=== PATIENT | female | born 1950 | race Caucasian/White ===

== ENCOUNTER 2016-09-12 07:50 | Day surgery (SDC) | payer MEDICARE, MEDICAID ==
[2016-09-12] MEDS ORDERED: Sodium Chloride 0.9% 1,000 ML IV SCH (08:00)
[2016-09-12] MEDS ORDERED: Sodium Chloride 0.9% 5 ML Syringe FLUSH PRN (08:00)
[2016-09-12 08:37] LABS: CHLORIDE,CL 100 mmol/L (98-115); SODIUM,NA 136 mmol/L (136-145)
[2016-09-12] MEDS ORDERED: fentaNYL 100 MCG/2 ML SDV ONE ×2 (10:07→10:15)
[2016-09-12] MEDS ORDERED: ceFAZolin 1 GM Vial ONE ×2 (10:07→10:15)
[2016-09-12] MEDS ORDERED: Propofol 200 MG/20 ML SDV ONE ×2 (10:07→10:15)
[2016-09-12] MEDS ORDERED: Midazolam 1 MG/ML 2 ML SDV ONE ×2 (10:07→10:15)
[2016-09-12] MEDS ORDERED: Ketorolac 30 MG/ML SDV ONE ×2 (10:07→10:15)
[2016-09-12] MEDS ORDERED: Lactated Ringers 1,000 ML ONE (10:08)
[2016-09-12] MEDS ORDERED: Neostigmine Methylsulfate 10 MG/10 ML MDV ONE (10:15)
[2016-09-12] MEDS ORDERED: Glycopyrrolate 0.2 MG/ML 5 ML MDV ONE (10:15)
[2016-09-12] MEDS ORDERED: Succinylcholine 200 MG/10 ML MDV ONE (10:15)
[2016-09-12] MEDS ORDERED: Ondansetron 4 MG/2 ML SDV ONE (10:15)
[2016-09-12] MEDS ORDERED: Rocuronium 50 MG/5 ML Vial ONE (10:15)
[2016-09-12] MEDS ORDERED: Bupivacaine 0.5%/EPINEPHrine 1:200,000 30 ML SDV INJECT ONE (10:50)
[2016-09-12] MEDS ORDERED: Bupivacaine 0.5%/EPINEPHrine 1:200,000 30 ML SDV ONE (10:55)
--- NOTE | 2016-09-12 11:06 | PCM.OPNOTE ---
- General Post-Op/Procedure Note Date of Surgery/Procedure: 09/12/16 Operative Procedure(s): Hysteroscopy and D&C. Removal of skin lesion over the suprapubic area, left side. Primary Surgeon: Marixa Poe Complications: None Condition: Good Free Text/Narrative:: Preoperative diagnosis: Postmenopausal bleeding, pelvic pain, pelvic discharge him a half normal uterine ultrasound with thickened endometrial stripe Postoperative diagnosis: As above Procedure: Examination under anesthesia, hysteroscopy, dilation and curettage. informed consent was obtained from the patient regarding this procedure. All possible complications were discussed including the possibly of uterine perforation, infection, and other anesthetic complications. The patient decided to proceed. She was taken to the OR and a satisfactory endotrachealtube was administered. She was then kept in the lithotomy position. Her genitals were thoroughly prepped and draped in the usual fashion. A bimanual examination was first of all performed. This revealed a atrophic uterus, a urethral caruncle, a nulliparous vaginal orifice. A weighted speculum was placed in the posterior vaginal wall . An anterior speculum was used. the cervix was visualized and held with a tenaculum. Following this a gentle dilatation of the endocervical canal was performed. After this we introduced the hysteroscope. The endometrial cavity measured approximately 2 and half inches. The endometrium was smooth and there was no evidence of polyps or other abnormality. Total quantity of saline used was approximately 50 cc. A gentle curettage was then performed but the curettings were very scant to nil. The patient tolerated the procedure well. She was transferred back to the recover room in excellent condition. Prior to her transfer,the patient had a skin lesion which was removed by infiltrating the base with Xylocaine 1%, making an elliptical skin incision and the skin edges were closed with 4-0 nylon sutures. The patient had requested this to be performed prior to the procedure.
[2016-09-12 12:45] VITALS: BP 143/78
== END 2016-09-12 13:30 | disposition home or self-care (01) ==
LOC: KA.SDS 07:50
PROVIDERS: ATTEND Family Medicine
DX: N95.0 Postmenopausal bleeding (principal); N39.0 Urinary tract infection, site not specified; K21.9 Gastro-esophageal reflux disease without esophagitis; E11.9 Type 2 diabetes mellitus without complications; I10 Essential (primary) hypertension; Z79.899 Other long term (current) drug therapy
CPT/HCPCS: 00940; 36415; 80048; 82962; 88305; J0330; J0690; J1885; J2250; J2405; J2704; J2710; J3010; J3490; J7030; J7120

== ENCOUNTER 2017-04-03 09:05 | Day surgery (SDC) | payer MEDICARE, MEDICAID ==
[~2017-04-03 09:05] MED LIST: Sodium Chloride 0.9% 1,000 ML IV SCH; Sodium Chloride 0.9% 5 ML Syringe FLUSH SCH
[2017-04-03] MEDS ORDERED: Propofol 200 MG/20 ML SDV ONE (09:07)
[2017-04-03] MEDS ORDERED: fentaNYL 100 MCG/2 ML SDV ONE (09:07)
[2017-04-03] MEDS ORDERED: Dexamethasone 4 MG/ML SDV ONE (09:08)
[2017-04-03] MEDS ORDERED: ceFAZolin 1 GM Vial ONE (09:31)
[2017-04-03] MEDS ORDERED: Sodium Chloride 0.9% 5 ML Syringe FLUSH SCH (10:00)
[2017-04-03] MEDS ORDERED: Sodium Chloride 0.9% 1,000 ML IV SCH (10:00)
[2017-04-03] MEDS ORDERED: Bacitracin/Neomycin/Polymyxin B Oint 28.4 GM Tube ONE (10:02)
[2017-04-03] MEDS ORDERED: Succinylcholine 200 MG/10 ML MDV IV ONE (10:16)
[2017-04-03] MEDS ORDERED: Ondansetron 4 MG/2 ML SDV IV ONE (10:16)
[2017-04-03] MEDS ORDERED: Neostigmine Methylsulfate 10 MG/10 ML MDV IV ONE (10:16)
[2017-04-03] MEDS ORDERED: Propofol 200 MG/20 ML SDV IV ONE (10:16)
[2017-04-03] MEDS ORDERED: Glycopyrrolate 0.2 MG/ML 5 ML MDV IV ONE (10:16)
[2017-04-03] MEDS ORDERED: Dexamethasone 4 MG/ML SDV IV ONE (10:16)
[2017-04-03] MEDS ORDERED: fentaNYL 100 MCG/2 ML SDV IV ONE (10:16)
[2017-04-03] MEDS ORDERED: ceFAZolin 1 GM Vial IV ONE (10:16)
[2017-04-03] MEDS ORDERED: Rocuronium 50 MG/5 ML Vial IV ONE (10:16)
[2017-04-03] MEDS ORDERED: Bacitracin/Neomycin/Polymyxin B Oint 0.9 GM U/D Packet TOP ONE (11:00)
--- NOTE | 2017-04-03 11:24 | PCM.OPNOTE ---
- General Post-Op/Procedure Note Date of Surgery/Procedure: 04/03/17 Operative Procedure(s): Coploscopy and LEEP, endometrial biopsy. Primary Surgeon: Marixa Poe Condition: Good Free Text/Narrative:: Dictated.
[2017-04-03 11:37] VITALS: BP 133/76
--- NOTE | 2017-04-04 08:08 | OR ---
DATE OF SURGERY: 04/03/2017 SURGEON: Marixa Poe MD PATIENT PROFILE: She is a 67-year-old female patient. PREOPERATIVE DIAGNOSIS: The patient is abnormal Pap smear, ASCUS, previous history of vaginal bleeding, currently patient has no bleeding. MICHELLE 2 POSTOPERATIVE DIAGNOSIS: The patient is abnormal Pap smear, ASCUS, previous history of vaginal bleeding, currently patient has no bleeding. PROCEDURE PROPOSED: 1. Colposcopy, possible LEEP, possible cervical biopsy, possible endometrial biopsy. OPERATION PERFORMED: 1. Colposcopy. 2. LEEP. 3. Endometrial biopsy. PROCEDURE: Informed consent was obtained from the patient regarding this procedure. All possible complications were thoroughly discussed. These include infection, pain, bleeding, perforation of the uterus and other unknown complications. She wished to proceed. She was taken to the operating room and satisfactory general anesthetic was administered via endotracheal tube. She was then kept in the lithotomy position. Genitals were thoroughly prepped and draped in the usual fashion. A weighted speculum was placed in the posterior vaginal wall. Anterior vaginal retractor was placed in the vagina. The cervix was exposed. This was atrophic. Uterus was also somewhat atrophic. No adnexal masses are present. Colposcopy was performed. Abnormal epithelium was discovered at the 12 o'clock position. We then performed an Endometrial suction biopsy. Scant curettings were obtained and sent in a liquid medium for pathology. We then performed a LEEP using electrocautery in the usual fashion. The specimen was sent for pathology. Cautery was used for hemostasis. A sterile vaginal pack was placed. Instruments were removed. The patient tolerated the procedure very well. There were no operative complications. Follow up in the clinic in 10 days. The vaginal pack will be removed by the patient later this evening. /[id number]/MODL MTDD
== END 2017-04-03 14:10 | disposition home or self-care (01) ==
LOC: KA.SDS 09:05
PROVIDERS: ATTEND Family Medicine
DX: N88.8 Other specified noninflammatory disorders of cervix uteri (principal); I10 Essential (primary) hypertension; E11.9 Type 2 diabetes mellitus without complications; K21.9 Gastro-esophageal reflux disease without esophagitis; Z88.2 Allergy status to sulfonamides; Z79.82 Long term (current) use of aspirin; Z79.4 Long term (current) use of insulin; Z79.84 Long term (current) use of oral hypoglycemic drugs; Z79.899 Other long term (current) drug therapy
CPT/HCPCS: 57460; 58110; 82962; J0330; J0690; J1100; J2405; J2704; J2710; J3010; J7030; 00940; 88307; 88342; J3490

== ENCOUNTER 2017-04-09 08:08 | Emergency (ER) | payer MEDICARE, MEDICAID ==
[2017-04-09 08:18] VITALS: BP 159/80
--- NOTE | 2017-04-09 08:36 | EDM.PDOC ---
ED HPI GENERAL MEDICAL PROBLEM - General Chief Complaint: General Stated Complaint: VAGINAL BLEEDING?? Time Seen by Provider: 04/09/17 08:30 Source of Information: Reports: Patient History Limitations: Reports: No Limitations - History of Present Illness INITIAL COMMENTS - FREE TEXT/NARRATIVE: PT STATES SHE HAD LEEP PROCEDURE PERFORMED BY DR RODRIGUEZ 6 DAYS AGO. NOTICED SMALL AMOUNT OF DARK BLOOD ON TISSUE WHEN SHE WIPED FOLLOWING URINATION. CONCERNED THAT SHE MAY BE BLEEDING VAGINALLY AGAIN. DENIES DYSURIA, FEVER, ABD PAIN, N/V/ D. Onset: Today Severity: Mild Improves with: Reports: None Worsens with: Reports: None Associated Symptoms: Reports: No Other Symptoms - Related Data Allergies Allergy/AdvReac Type Severity Reaction Status Date / Time Sulfa (Sulfonamide Allergy Nausea Verified 04/09/17 08:18 Antibiotics) Home Meds: Home Meds Acetaminophen [Tylenol] 650 mg PO QID PRN 09/09/16 [History] Aspirin [Halfprin] 81 mg PO BRK 09/09/16 [History] Hydrochlorothiazide 25 mg PO DAILY 09/09/16 [History] Insulin Glarg,Human.Rec.Analog [Lantus] 22 unit SUBCUT DAILY 09/09/16 [History] Valsartan [Diovan] 320 mg PO DAILY 09/09/16 [History] amLODIPine [Norvasc] 5 mg PO DAILY 09/09/16 [History] atorvaSTATin [Lipitor] 10 mg PO BEDTIME 09/09/16 [History] metFORMIN [Glucophage XR] 500 mg PO BIDMEALS 09/09/16 [History] Polyethylene Glycol [Polyox Wsr-301] 1 tsp PO DAILY PRN 03/30/17 [History] Past Medical History HEENT History: Reports: None Cardiovascular History: Reports: None Respiratory History: Reports: None Gastrointestinal History: Reports: None Genitourinary History: Reports: None 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) Other OB/BYN History: previous D&C Musculoskeletal History: Reports: None Neurological History: Reports: None Psychiatric History: Reports: None Endocrine/Metabolic History: Reports: None Hematologic History: Reports: None Immunologic History: Reports: None Oncologic (Cancer) History: Reports: None Dermatologic History: Reports: None - Infectious Disease History Infectious Disease History: Reports: None - Past Surgical History Head Surgeries/Procedures: Reports: None HEENT Surgical History: Reports: None Cardiovascular Surgical History: Reports: None Respiratory Surgical History: Reports: None GI Surgical History: Reports: None Female Surgical History: Reports: None Endocrine Surgical History: Reports: None Neurological Surgical History: Reports: None Musculoskeletal Surgical History: Reports: None Oncologic Surgical History: Reports: None Dermatological Surgical History: Reports: None Social & Family History - Tobacco Use Smoking Status *Q: Never Smoker - Caffeine Use Caffeine Use: Reports: None - Recreational Drug Use Recreational Drug Use: No ED ROS GENERAL - Review of Systems Review Of Systems: ROS reveals no pertinent complaints other than HPI. Constitutional: Reports: No Symptoms HEENT: Reports: No Symptoms Respiratory: Reports: No Symptoms Cardiovascular: Reports: No Symptoms Endocrine: Reports: No Symptoms GI/Abdominal: Reports: No Symptoms. Denies: Abdominal Pain : Reports: No Symptoms, Other (VAG DISCHARGE) Musculoskeletal: Reports: No Symptoms Skin: Reports: No Symptoms Neurological: Reports: No Symptoms Psychiatric: Reports: No Symptoms Hematologic/Lymphatic: Reports: No Symptoms Immunologic: Reports: No Symptoms ED EXAM, GENERAL - Physical Exam Exam: See Below Exam Limited By: No Limitations General Appearance: Alert, WD/WN, No Apparent Distress Throat/Mouth: Normal Inspection, Normal Oropharynx, No Airway Compromise Respiratory/Chest: No Respiratory Distress, Lungs Clear, Normal Breath Sounds Cardiovascular: Regular Rate, Rhythm, No Murmur GI/Abdominal: Normal Bowel Sounds, Soft, Non-Tender, No Organomegaly, No Distention, No Abnormal Bruit, No Mass Back Exam: Normal Inspection. No: CVA Tenderness (L), CVA Tenderness (R) Extremities: Normal Inspection Neurological: Alert, Oriented, Normal Cognition Psychiatric: Normal Affect, Normal Mood Skin Exam: Warm, Dry, Intact, Normal Color, No Rash Lymphatic: No Adenopathy Course - Vital Signs Last Recorded V/S: Last Vital Signs Temp 99.6 F 04/09/17 08:15 Pulse 121 H 04/09/17 08:15 Resp 18 04/09/17 08:15 BP 159/80 H 04/09/17 08:15 Pulse Ox 96 04/09/17 08:15 - Re-Assessments/Exams Free Text/Narrative Re-Assessment/Exam: 04/09/17 08:34 PT AFEBRILE, NONTOXIC APPEARING, VSS. PT STATES NO VAGINALLY BLEEDING SINCE ONE INCIDENT THIS AM. DENIES ABD PAIN. VAG EXAM DEFERRED AND WILL HAVE PT FOLLOW UP AT [facility] FOR POST OP APPOINTMENT SCHEDULED Departure - Departure Time of Disposition: 08:36 Disposition: Home, Self-Care 01 Condition: Good Clinical Impression: Postoperative vaginal bleeding following genitourinary procedure - Discharge Information Instructions: Loop Electrosurgical Excision Procedure, Care After Referrals: Ashley eMndoza PA-C [Primary Care Provider] - Additional Instructions: FOLLOW UP AT [facility] IN NEXT 1-2 DAYS - Assessment/Plan Assessment:: VAGINAL DISCHARGE POST PROCEDURE Plan: F/U AT CLINIC
== END 2017-04-09 08:42 | disposition home or self-care (01) ==
LOC: KA.ED 08:08
DX: N99.820 Postprocedural hemorrhage of a genitourinary system organ or structure following a genitourinary system procedure (principal); Z88.2 Allergy status to sulfonamides; Z79.82 Long term (current) use of aspirin; Z79.4 Long term (current) use of insulin; Z79.899 Other long term (current) drug therapy; Z79.84 Long term (current) use of oral hypoglycemic drugs
CPT/HCPCS: 99283

== ENCOUNTER 2017-08-24 11:20 | Observation (INO) | payer MEDICARE, MEDICAID ==
--- NOTE | 2017-08-24 11:30 | EDM.PDOC ---
ED HPI GENERAL MEDICAL PROBLEM - General Chief Complaint: Cardiovascular Problem Stated Complaint: chest pain Time Seen by Provider: 08/24/17 11:24 Source of Information: Reports: Patient History Limitations: Reports: No Limitations - History of Present Illness INITIAL COMMENTS - FREE TEXT/NARRATIVE: 67 YO WF with PMH of IDDM and HTN presents to ER complaining of episode of shortness of breath while walking to the mailbox followed by lightheadedness. Pt reports symptoms resolved after rest but while driving she developed a fleeting episode of substernal chest pain prompting evaluation at [facility]. EMS was called for further evaluation and transport to ER. Pt currently denies chest pain, shortness of breath, nausea/vomiting, dizziness, diaphoresis or recent illness. Onset Date: 08/24/17 Duration: Hour(s): (1) Location: Reports: Chest Quality: Reports: Pressure Severity: Mild Improves with: Reports: None Worsens with: Reports: None Associated Symptoms: Reports: Chest Pain, Shortness of Breath. Denies: Cough, Diaphoresis, Fever/Chills, Nausea/Vomiting, Syncope, Weakness - Related Data Allergies Allergy/AdvReac Type Severity Reaction Status Date / Time Sulfa (Sulfonamide Allergy Nausea Verified 08/24/17 11:57 Antibiotics) Home Meds: Home Meds Acetaminophen [Tylenol] 650 mg PO QID PRN 09/09/16 [History] Aspirin [Halfprin] 81 mg PO BRK 09/09/16 [History] Hydrochlorothiazide 25 mg PO DAILY 09/09/16 [History] Valsartan [Diovan] 320 mg PO DAILY 09/09/16 [History] amLODIPine [Norvasc] 5 mg PO DAILY 09/09/16 [History] atorvaSTATin [Lipitor] 10 mg PO BEDTIME 09/09/16 [History] metFORMIN [Glucophage XR] 500 mg PO BIDMEALS 09/09/16 [History] Polyethylene Glycol [Polyox Wsr-301] 1 tsp PO DAILY PRN 03/30/17 [History] Ciclopirox/Ure/Camph/Menth/Euc [Ciclopirox 8% Treatment Kit] 1 applic TOP DAILY 08/24/17 [History] Insulin Detemir [Levemir] 20 unit SQ BEDTIME 08/24/17 [History] Past Medical History HEENT History: Reports: None Cardiovascular History: Reports: None Respiratory History: Reports: None Gastrointestinal History: Reports: None Genitourinary History: Reports: None 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) Other OB/BYN History: previous D&C Musculoskeletal History: Reports: None Neurological History: Reports: None Psychiatric History: Reports: None Endocrine/Metabolic History: Reports: None Hematologic History: Reports: None Immunologic History: Reports: None Oncologic (Cancer) History: Reports: None Dermatologic History: Reports: None - Infectious Disease History Infectious Disease History: Reports: None - Past Surgical History Head Surgeries/Procedures: Reports: None HEENT Surgical History: Reports: None Cardiovascular Surgical History: Reports: None Respiratory Surgical History: Reports: None GI Surgical History: Reports: None Female Surgical History: Reports: None Endocrine Surgical History: Reports: None Neurological Surgical History: Reports: None Musculoskeletal Surgical History: Reports: None Oncologic Surgical History: Reports: None Dermatological Surgical History: Reports: None Social & Family History - Tobacco Use Smoking Status *Q: Never Smoker Second Hand Smoke Exposure: No - Caffeine Use Caffeine Use: Reports: None - Recreational Drug Use Recreational Drug Use: No ED ROS GENERAL - Review of Systems Review Of Systems: See Below Constitutional: Reports: No Symptoms HEENT: Reports: No Symptoms Respiratory: Reports: Shortness of Breath Cardiovascular: Reports: Chest Pain, Lightheadedness Endocrine: Reports: No Symptoms GI/Abdominal: Reports: No Symptoms : Reports: No Symptoms Musculoskeletal: Reports: No Symptoms Skin: Reports: No Symptoms Neurological: Reports: No Symptoms Psychiatric: Reports: No Symptoms Hematologic/Lymphatic: Reports: No Symptoms Immunologic: Reports: No Symptoms ED EXAM, GENERAL - Physical Exam Exam: See Below Exam Limited By: No Limitations General Appearance: Alert, WD/WN, No Apparent Distress Head: Atraumatic, Normocephalic Neck: Normal Inspection, Supple, Non-Tender, Full Range of Motion Respiratory/Chest: No Respiratory Distress, Lungs Clear, Normal Breath Sounds, No Accessory Muscle Use, Chest Non-Tender Cardiovascular: Normal Peripheral Pulses, Regular Rate, Rhythm, No Edema, No Gallop, No JVD, No Murmur, No Rub GI/Abdominal: Normal Bowel Sounds, Soft, Non-Tender, No Organomegaly, No Distention, No Abnormal Bruit, No Mass Back Exam: Normal Inspection, Full Range of Motion, NT Extremities: Normal Inspection, Normal Range of Motion, Non-Tender, Normal Capillary Refill, No Pedal Edema Neurological: Alert, Oriented, CN II-XII Intact, Normal Cognition, Normal Gait, Normal Reflexes, No Motor/Sensory Deficits Psychiatric: Normal Affect, Normal Mood Skin Exam: Warm, Dry, Intact, Normal Color, No Rash Lymphatic: No Adenopathy EKG INTERPRETATION EKG Date: 08/24/17 Time: 11:30 Rhythm: NSR Rate (Beats/Min): 102 [place]: Normal P-Wave: Present QRS: Normal ST-T: Normal QT: Normal Comparison: NA - No Prior EKG Course - Vital Signs Last Recorded V/S: Last Vital Signs Temp 37.0 C 08/24/17 11:28 Pulse 102 H 08/24/17 11:28 Resp 16 08/24/17 11:28 BP 164/75 H 08/24/17 11:28 Pulse Ox 98 08/24/17 11:28 - Orders/Labs/Meds Orders: Active Orders 24 hr Category Date Time Status Blood Glucose Check, Bedside [RC] ONETIME Care 08/24/17 11:54 Active Cardiac Monitoring [RC] . DIRECTED Care 08/24/17 11:21 Ordered EKG Documentation Completion [RC] ASDIRECTED Care 08/24/17 11:22 Ordered Oxygen Therapy Adult [Oxygen Therapy, ED] [RC] Care 08/24/17 11:21 Ordered ASDIRECTED Peripheral IV Care [RC] . DIRECTED Care 08/24/17 11:21 Ordered Chest 1V Frontal [CR] Stat Exams 08/24/17 11:21 Ordered Nitroglycerin [Nitro-Bid 2%] Med 08/24/17 11:37 Ordered 1 gm TOP Q6H PRN EKG 12 Lead [EK] Routine Ther 08/24/17 11:21 Ordered Medication Orders Nitroglycerin (Nitro-Bid 2%) 1 gm TOP Q6H PRN PRN Reason: Chest Pain Last Admin: 08/24/17 11:50 Dose: 1 gm Labs: Laboratory Tests 08/24/17 08/24/17 08/24/17 Range/Units 11:38 11:40 11:40 WBC 8.4 (5.0-10.0) 10^3/uL RBC 4.78 (3.80-5.50) 10^6/uL Hgb 13.5 (12.0-16.0) g/dL Hct 41.2 (37.0-47.0) % MCV 86.1 (82.0-92.0) fL MCH 28.3 (27.0-31.0) pg MCHC 32.9 (32.0-36.0) g/dL RDW 12.1 (11.5-14.5) % Plt Count 334 H (150-300) 10^3/uL MPV 7.8 (7.4-10.4) fL Neut % (Auto) 79.2 H (50.0-70.0) % Lymph % (Auto) 14.5 L (20.0-40.0) % Mcmullen % (Auto) 4.9 (2.0-8.0) % Eos % (Auto) 1.0 (1.0-3.0) % Baso % (Auto) 0.4 (0.0-1.0) % Neut # (Auto) 6.7 (2.5-7.0) 10^3/uL Lymph # (Auto) 1.2 (1.0-4.0) 10^3/uL Mcmullen # (Auto) 0.4 (0.1-0.8) 10^3/uL Eos # (Auto) 0.1 (0.1-0.3) 10^3/uL Baso # (Auto) 0.0 (0.0-0.1) 10^3/uL D-Dimer, Quantitative (<400) ng/mL Sodium 134 L (136-145) mmol/L Potassium 4.0 (3.3-5.3) mmol/L Chloride 96 L (98-115) mmol/L Carbon Dioxide 26.1 (21.0-32.0) mmol/L BUN 15 (6-25) mg/dL Creatinine 0.77 (0.51-1.17) mg/dL Est Cr Clr Drug Dosing 55.30 mL/min Estimated GFR (MDRD) > 60 mL/min Glucose 179 H (70-110) mg/dL POC Glucose 185 H (74-106) mg/dl Calcium 9.8 (8.7-10.3) mg/dL Total Bilirubin 0.4 (0.2-1.0) mg/dL AST 17 (15-37) U/L ALT 25 (12-78) U/L Alkaline Phosphatase 76 (46-116) IU/L Creatine Kinase 52 (26-276) U/L CK-MB (CK-2) < 0.50 (0.00-4.30) ng/mL Troponin I < 0.04 (0.00-0.070) ng/mL Total Protein 8.4 H (6.4-8.2) g/dL Albumin 4.14 (3.00-4.80) g/dL 08/24/17 Range/Units 11:40 WBC (5.0-10.0) 10^3/uL RBC (3.80-5.50) 10^6/uL Hgb (12.0-16.0) g/dL Hct (37.0-47.0) % MCV (82.0-92.0) fL MCH (27.0-31.0) pg MCHC (32.0-36.0) g/dL RDW (11.5-14.5) % Plt Count (150-300) 10^3/uL MPV (7.4-10.4) fL Neut % (Auto) (50.0-70.0) % Lymph % (Auto) (20.0-40.0) % Mcmullen % (Auto) (2.0-8.0) % Eos % (Auto) (1.0-3.0) % Baso % (Auto) (0.0-1.0) % Neut # (Auto) (2.5-7.0) 10^3/uL Lymph # (Auto) (1.0-4.0) 10^3/uL Mcmullen # (Auto) (0.1-0.8) 10^3/uL Eos # (Auto) (0.1-0.3) 10^3/uL Baso # (Auto) (0.0-0.1) 10^3/uL D-Dimer, Quantitative < 100 (<400) ng/mL Sodium (136-145) mmol/L Potassium (3.3-5.3) mmol/L Chloride (98-115) mmol/L Carbon Dioxide (21.0-32.0) mmol/L BUN (6-25) mg/dL Creatinine (0.51-1.17) mg/dL Est Cr Clr Drug Dosing mL/min Estimated GFR (MDRD) mL/min Glucose (70-110) mg/dL POC Glucose (74-106) mg/dl Calcium (8.7-10.3) mg/dL Total Bilirubin (0.2-1.0) mg/dL AST (15-37) U/L ALT (12-78) U/L Alkaline Phosphatase (46-116) IU/L Creatine Kinase (26-276) U/L CK-MB (CK-2) (0.00-4.30) ng/mL Troponin I (0.00-0.070) ng/mL Total Protein (6.4-8.2) g/dL Albumin (3.00-4.80) g/dL Meds: Medications Generic Name Dose Route Start Last Admin Trade Name Freq PRN Reason Stop Dose Admin Nitroglycerin 1 gm 08/24/17 11:37 08/24/17 11:50 Nitro-Bid 2% TOP 1 gm Q6H PRN Administration Chest Pain Discontinued Medications Generic Name Dose Route Start Last Admin Trade Name Freq PRN Reason Stop Dose Admin Aspirin 324 mg 08/24/17 11:37 08/24/17 11:50 Aspirin PO 08/24/17 11:38 Not Given ONETIME ONE Sodium Chloride 1,000 mls @ 999 mls/hr 08/24/17 11:37 08/24/17 11:50 Normal Saline IV 08/24/17 12:37 999 mls/hr .BOLUS ONE Administration - Radiology Interpretation Free Text/Narrative:: CXR- NAD Departure - Departure Time of Disposition: 12:39 Disposition: Refer to Observation Condition: Fair Clinical Impression: Chest pain Qualifiers: Chest pain type: unspecified Qualified Code(s): R07.9 - Chest pain, unspecified Referrals: Ashley Mendoza PA-C [Primary Care Provider] - Forms: ED Department Discharge - My Orders Last 24 Hours: My Active Orders 08/24/17 11:21 Cardiac Monitoring [RC] . DIRECTED Oxygen Therapy Adult [Oxygen Therapy, ED] [RC] ASDIRECTED Peripheral IV Care [RC] . DIRECTED Chest 1V Frontal [CR] Stat EKG 12 Lead [EK] Routine 08/24/17 11:22 EKG Documentation Completion [RC] ASDIRECTED 08/24/17 11:37 Nitroglycerin [Nitro-Bid 2%] 1 gm TOP Q6H PRN 08/24/17 11:54 Blood Glucose Check, Bedside [RC] ONETIME - Assessment/Plan Last 24 Hours: My Active Orders 08/24/17 11:21 Cardiac Monitoring [RC] . DIRECTED Oxygen Therapy Adult [Oxygen Therapy, ED] [RC] ASDIRECTED Peripheral IV Care [RC] . DIRECTED Chest 1V Frontal [CR] Stat EKG 12 Lead [EK] Routine 08/24/17 11:22 EKG Documentation Completion [RC] ASDIRECTED 08/24/17 11:37 Nitroglycerin [Nitro-Bid 2%] 1 gm TOP Q6H PRN 08/24/17 11:54 Blood Glucose Check, Bedside [RC] ONETIME Assessment:: 1. Chest pain Plan: 1. Admit for 23 obs- Erik Lagos 2. Nitro/ASA 3. Trop I Q6 4. supportive care
[2017-08-24] MEDS ORDERED: Aspirin 81 MG Tab.Chew PO ONE (11:37)
[2017-08-24] MEDS ORDERED: Nitroglycerin 2% Oint 1 GM UD Packet TOP PRN ×2 (11:37→12:49)
[2017-08-24] MEDS ORDERED: Sodium Chloride 0.9% 1,000 ML IV ONE (11:37)
[2017-08-24 12:26] LABS: CHLORIDE,CL 96 mmol/L (98-115); SODIUM,NA 134 mmol/L (136-145)
[2017-08-24] MEDS ORDERED: Sodium Chloride 0.9% 5 ML Syringe FLUSH PRN (12:41)
[2017-08-24] MEDS ORDERED: EPINEPHrine 1:10,000 1 MG/10 ML Syringe IVPUSH PRN (13:43)
[2017-08-24] MEDS ORDERED: Atropine 0.1 MG/ML 10 ML Syringe IVPUSH PRN (13:43)
[2017-08-24] MEDS ORDERED: Lidocaine 2% 100 MG/5 ML Syringe IVPUSH PRN (13:43)
[2017-08-24] MEDS ORDERED: Nitroglycerin 0.4 MG Tab.SL SL PRN (13:43)
[2017-08-24] MEDS ORDERED: Acetaminophen 325 MG Tab PO PRN (17:43)
[2017-08-24] MEDS ORDERED: Polyethylene Glycol 3350 Powder 17 GM Packet PO PRN (17:43)
[2017-08-24] MEDS: Insulin Aspart 100 Units/ML 3 ML Pen SUBCUT SCH (18:29)
[2017-08-24] MEDS ORDERED: amLODIPine 5 MG Tab PO SCH (21:00)
[2017-08-24] MEDS ORDERED: atorvaSTATin 10 MG Tab PO SCH (21:00)
[2017-08-25] MEDS: Insulin Aspart 100 Units/ML 3 ML Pen SUBCUT SCH ×3 (07:28→17:50)
[2017-08-25 07:47] LABS: CHLORIDE,CL 102 mmol/L (98-115); SODIUM,NA 139 mmol/L (136-145)
[2017-08-25] MEDS: Insulin Detemir 100 Units/ML 3 ML Pen SUBCUT SCH ×2 (07:53→11:09)
[2017-08-25] MEDS: Aspirin 325 MG Tab.EC PO SCH ×2 (07:54→11:02)
[2017-08-25] MEDS: Hydrochlorothiazide 25 MG Tab PO SCH ×2 (07:54→11:02)
[2017-08-25] MEDS ORDERED: Aspirin 81 MG Tab.EC PO SCH (08:00)
[2017-08-25] MEDS ORDERED: [UNRECOGNIZED DRUG - OTHER] TOP SCH (09:00)
[2017-08-25] MEDS ORDERED: Sodium Chloride 0.9% 1,000 ML IV ONE ×2 (09:11→13:23)
--- NOTE | 2017-08-25 10:11 | PCM.HP ---
H&P History of Present Illness - General Date of Service: 08/25/17 Source of Information: Patient, Old Records, Provider, RN History Limitations: Reports: No Limitations - History of Present Illness Initial Comments - Free Text/Narative: This study 7-year-old female was admitted into observation through the emergency department due to chest pain and rule out myocardial infarction. She did been evaluated by [facility] provider she presented to do some lightheadedness and left-sided chest pain. Patient stated she was driving with a friend and they had to turn around and go back to the clinic after she had a very transient episode of substernal chest pain. She had never had this pain before. She was transported from the clinic via ambulance to the ED. Upon arrival in the ED she had no chest pain nor shortness of breath. No nausea vomiting dizziness diaphoresis or recent illnesses as noted. - Related Data Allergies/Adverse Reactions: Allergies Allergy/AdvReac Type Severity Reaction Status Date / Time Sulfa (Sulfonamide Allergy Nausea Verified 08/24/17 11:57 Antibiotics) Home Medications: Home Meds Acetaminophen [Tylenol] 650 mg PO QID PRN 09/09/16 [History] Aspirin [Halfprin] 81 mg PO BRK 09/09/16 [History] Hydrochlorothiazide 25 mg PO DAILY 09/09/16 [History] Valsartan [Diovan] 320 mg PO DAILY 09/09/16 [History] amLODIPine [Norvasc] 5 mg PO BEDTIME 09/09/16 [History] atorvaSTATin [Lipitor] 10 mg PO BEDTIME 09/09/16 [History] metFORMIN [Glucophage XR] 500 mg PO BIDMEALS 09/09/16 [History] Polyethylene Glycol [Polyox Wsr-301] 1 tsp PO DAILY PRN 03/30/17 [History] Ciclopirox/Ure/Camph/Menth/Euc [Ciclopirox 8% Treatment Kit] 1 applic TOP DAILY 08/24/17 [History] Insulin Detemir [Levemir] 20 unit SQ DAILY 08/24/17 [History] Past Medical History HEENT History: Reports: None Cardiovascular History: Reports: None Respiratory History: Reports: None Gastrointestinal History: Reports: None Genitourinary History: Reports: None HEALTH SAFETY MANAGER History: Reports: Other (See Below) Other OB/BYN History: previous D&C Musculoskeletal History: Reports: None Neurological History: Reports: None Psychiatric History: Reports: None Endocrine/Metabolic History: Reports: None Hematologic History: Reports: None Immunologic History: Reports: None Oncologic (Cancer) History: Reports: None Dermatologic History: Reports: None - Infectious Disease History Infectious Disease History: Reports: None - Past Surgical History Head Surgeries/Procedures: Reports: None HEENT Surgical History: Reports: None Cardiovascular Surgical History: Reports: None Respiratory Surgical History: Reports: None GI Surgical History: Reports: None Female Surgical History: Reports: None Endocrine Surgical History: Reports: None Neurological Surgical History: Reports: None Musculoskeletal Surgical History: Reports: None Oncologic Surgical History: Reports: None Dermatological Surgical History: Reports: None Social & Family History - Family History HEENT: Reports: None Cardiac: Reports: Other (See Below) (Father with heart disease) Respiratory: Reports: None GI: Reports: None : Reports: None OBGYN: Reports: None Musculoskeletal: Reports: None Neurological: Reports: None Psychiatric: Reports: None Endocrine/Metabolic: Reports: None Hematologic: Reports: None Immunologic: Reports: None Dermatologic: Reports: None Oncologic: Reports: None - Tobacco Use Smoking Status *Q: Never Smoker Second Hand Smoke Exposure: No - Caffeine Use Caffeine Use: Reports: None - Recreational Drug Use Recreational Drug Use: No H&P Review of Systems - Review of Systems: Review Of Systems: See Below General: Reports: No Symptoms HEENT: Reports: Hearing Changes (Hearing loss chronic) Pulmonary: Reports: No Symptoms Cardiovascular: Reports: No Symptoms. Denies: Orthopnea, PND, Edema, Lightheadedness, Syncope, Claudication, Blood Pressure Problem Gastrointestinal: Reports: No Symptoms Genitourinary: Reports: No Symptoms Musculoskeletal: Reports: No Symptoms Skin: Reports: No Symptoms Psychiatric: Reports: No Symptoms Neurological: Reports: No Symptoms Hematologic/Lymphatic: Reports: No Symptoms Immunologic: Reports: No Symptoms Exam - Exam Exam: See Below - Vital Signs Vital Signs: Last Vital Signs Temp 98.8 F 08/25/17 06:21 Pulse 87 08/25/17 06:21 Resp 18 08/25/17 06:21 BP 116/64 08/25/17 08:43 Pulse Ox 96 08/25/17 06:21 Weight: 161 lb 4.8 oz - Exam Quality Assessment: No: Supplemental Oxygen General: Alert, Oriented, 4 HEENT: PERRLA, Hearing Intact, Mucosa Moist & Likely, Nares Patent, Normal Nasal Septum, Posterior Pharynx Clear, Conjunctiva Clear, EOMI, EACs Clear, TMs Clear Neck: Supple, Trachea Midline, 2 Lungs: Clear to Auscultation, Normal Respiratory Effort Cardiovascular: Regular Rhythm, Tachycardia (Heart regular monitor approximately 110) GI/Abdominal Exam: Normal Bowel Sounds, Soft, Non-Tender, No Organomegaly, No Distention, No Abnormal Bruit, No Mass, Pelvis Stable Back Exam: No: CVA Tenderness (R) Extremities: No Pedal Edema Peripheral Pulses: 2+: Radial (L), Radial (R) Skin: Warm, Dry, Intact Neurological: Cranial Nerves Intact, Reflexes Equal Bilateral Neuro Extensive - Mental Status: Alert, Oriented x3, Normal Mood/Affect, Normal Cognition Neuro Extensive - Motor, Sensory, Reflexes: CN II-XII Intact, Normal Gait, Normal Reflexes Psychiatric: Alert, Normal Affect, Normal Mood - Patient Data Lab Results Last 24 hrs: Laboratory Results - last 24 hr 08/24/17 08/24/17 08/25/17 Range/Units 17:52 18:05 07:11 WBC 8.8 (5.0-10.0) 10^3/uL RBC 4.63 (3.80-5.50) 10^6/uL Hgb 13.1 (12.0-16.0) g/dL Hct 39.9 (37.0-47.0) % MCV 86.1 (82.0-92.0) fL MCH 28.3 (27.0-31.0) pg MCHC 32.9 (32.0-36.0) g/dL RDW 12.0 (11.5-14.5) % Plt Count 313 H (150-300) 10^3/uL MPV 8.0 (7.4-10.4) fL Neut % (Auto) 79.6 H (50.0-70.0) % Lymph % (Auto) 14.3 L (20.0-40.0) % [place] % (Auto) 4.7 (2.0-8.0) % Eos % (Auto) 1.1 (1.0-3.0) % Baso % (Auto) 0.3 (0.0-1.0) % Neut # (Auto) 7.0 (2.5-7.0) 10^3/uL Lymph # (Auto) 1.3 (1.0-4.0) 10^3/uL [place] # (Auto) 0.4 (0.1-0.8) 10^3/uL Eos # (Auto) 0.1 (0.1-0.3) 10^3/uL Baso # (Auto) 0.0 (0.0-0.1) 10^3/uL Sodium (136-145) mmol/L Potassium (3.3-5.3) mmol/L Chloride (98-115) mmol/L Carbon Dioxide (21.0-32.0) mmol/L BUN (6-25) mg/dL Creatinine (0.51-1.17) mg/dL Est Cr Clr Drug Dosing mL/min Estimated GFR (MDRD) mL/min Glucose (70-110) mg/dL POC Glucose 189 H (74-106) mg/dl Calcium (8.7-10.3) mg/dL Magnesium (1.8-2.4) mg/dL Troponin I < 0.04 (0.00-0.070) ng/mL 08/25/17 08/25/17 Range/Units 07:11 07:17 WBC (5.0-10.0) 10^3/uL RBC (3.80-5.50) 10^6/uL Hgb (12.0-16.0) g/dL Hct (37.0-47.0) % MCV (82.0-92.0) fL MCH (27.0-31.0) pg MCHC (32.0-36.0) g/dL RDW (11.5-14.5) % Plt Count (150-300) 10^3/uL MPV (7.4-10.4) fL Neut % (Auto) (50.0-70.0) % Lymph % (Auto) (20.0-40.0) % [place] % (Auto) (2.0-8.0) % Eos % (Auto) (1.0-3.0) % Baso % (Auto) (0.0-1.0) % Neut # (Auto) (2.5-7.0) 10^3/uL Lymph # (Auto) (1.0-4.0) 10^3/uL [place] # (Auto) (0.1-0.8) 10^3/uL Eos # (Auto) (0.1-0.3) 10^3/uL Baso # (Auto) (0.0-0.1) 10^3/uL Sodium 139 (136-145) mmol/L Potassium 4.2 (3.3-5.3) mmol/L Chloride 102 (98-115) mmol/L Carbon Dioxide 26.2 (21.0-32.0) mmol/L BUN 12 (6-25) mg/dL Creatinine 0.80 (0.51-1.17) mg/dL Est Cr Clr Drug Dosing 53.23 mL/min Estimated GFR (MDRD) > 60 mL/min Glucose 168 H (70-110) mg/dL POC Glucose 142 H (74-106) mg/dl Calcium 9.3 (8.7-10.3) mg/dL Magnesium 1.8 (1.8-2.4) mg/dL Troponin I < 0.04 (0.00-0.070) ng/mL Result Diagrams: 08/25/17 07:11 08/25/17 07:11 EKG INTERPRETATION EKG Date: 08/24/17 Rhythm: Other (Tachycardia) [place]: Normal P-Wave: Present QRS: Normal ST-T: Normal QT: Normal *Q Meaningful Use (ADM) - VTE *Q VTE Criteria *Q: - Stroke *Q Stroke Criteria *Q: - AMI *Q AMI Criteria *Q: Problem List Initiated/Reviewed/Updated: Yes Orders Last 24hrs: Active Orders 24 hr Category Date Time Status Blood Glucose Check, Bedside [RC] TIDMEALS Care 08/24/17 17:59 Active 2 Gram Sodium Diet [DIET] Diet 08/24/17 Dinner Active Acetaminophen [Tylenol] Med 08/24/17 17:43 Active 650 mg PO QID PRN Aspirin [Ecotrin] Med 08/25/17 09:00 Active 325 mg PO DAILY Atropine [Atropine 0.1 MG/ML] Med 08/24/17 13:43 Active 0 mg IVPUSH ASDIRECTED PRN Ciclopirox/Ure/Camph/Menth/Euc [Ciclopirox 8% Treatment Med 08/25/17 09:00 Pending Kit] 1 applic TOP DAILY EPINEPHrine [EPINEPHrine 1:10,000] Med 08/24/17 13:43 Active 1 mg IVPUSH ASDIRECTED PRN Hydrochlorothiazide Med 08/25/17 09:00 Active 25 mg PO DAILY Insulin Aspart [NovoLOG] Med 08/24/17 18:00 Active See Protocol SUBCUT TIDMEALS Insulin Detemir [Levemir] Med 08/25/17 09:00 Active 20 unit SUBCUT DAILY Lidocaine 2% [Xylocaine 2%] Med 08/24/17 13:43 Active 0 mg IVPUSH ASDIRECTED PRN Nitroglycerin [Nitrostat] Med 08/24/17 13:43 Active 0.4 mg SL ASDIRECTED PRN Polyethylene Glycol 3350 [MiraLAX] Med 08/24/17 17:43 Active 17 gm PO DAILY PRN Sodium Chloride 0.9% [Normal Saline] 1,000 ml Med 08/25/17 09:11 Active IV .BOLUS Valsartan [Diovan] Med 08/25/17 09:00 Active 320 mg PO DAILY amLODIPine [Norvasc] Med 08/24/17 21:00 Active 5 mg PO BEDTIME atorvaSTATin [Lipitor] Med 08/24/17 21:00 Active 10 mg PO BEDTIME Medication Orders Acetaminophen (Tylenol) 650 mg PO QID PRN PRN Reason: Pain Amlodipine Besylate (Norvasc) 5 mg PO BEDTIME [facility] Last Admin: 08/24/17 20:31 Dose: 5 mg Aspirin (Ecotrin) 325 mg PO DAILY [facility] Last Admin: 08/25/17 07:54 Dose: 325 mg Atorvastatin Calcium (Lipitor) 10 mg PO BEDTIME [facility] Last Admin: 08/24/17 20:31 Dose: 10 mg Atropine Sulfate (Atropine 0.1 Mg/Ml) 0 mg IVPUSH ASDIRECTED PRN PRN Reason: Heart Epinephrine HCl (Epinephrine 1:10,000) 1 mg IVPUSH ASDIRECTED PRN PRN Reason: Heart Hydrochlorothiazide (Hydrochlorothiazide) 25 mg PO DAILY [facility] Last Admin: 08/25/17 07:54 Dose: 25 mg Sodium Chloride (Normal Saline) 1,000 mls @ 300 mls/hr IV .BOLUS ONE Stop: 08/25/17 12:30 Last Admin: 08/25/17 09:55 Dose: 300 mls/hr Insulin Aspart (Novolog) 0 unit SUBCUT TIDMEALS [facility] PRN Reason: Protocol Last Admin: 08/25/17 07:28 Dose: Admin: 08/24/17 18:29 Dose: 1 unit Insulin Detemir (Levemir) 20 unit SUBCUT DAILY [facility] Last Admin: 08/25/17 07:53 Dose: 20 units Lidocaine HCl (Xylocaine 2%) 0 mg IVPUSH ASDIRECTED PRN PRN Reason: Heart Nitroglycerin (Nitrostat) 0.4 mg SL ASDIRECTED PRN PRN Reason: Heart Non-Formulary Medication (Ciclopirox/Ure/Camph/Menth/Euc [Ciclopirox 8% Treatment Kit]) 1 applic TOP DAILY [facility] Polyethylene Glycol (Miralax) 17 gm PO DAILY PRN PRN Reason: Constipation Last Admin: 08/25/17 08:46 Dose: 17 gm Sodium Chloride (Syrex Flush) 5 ml FLUSH Q8HR PRN PRN Reason: Keep Vein Open Valsartan (Diovan) 320 mg PO DAILY [facility] Last Admin: 08/25/17 08:43 Dose: 320 mg Assessment/Plan Comment:: HISTORY OF PRESENT ILLNESS This study 7-year-old female was admitted into observation through the emergency department due to chest pain and rule out myocardial infarction. She did been evaluated by [facility] provider she presented to do some lightheadedness and left-sided chest pain. Patient stated she was driving with a friend and they had to turn around and go back to the clinic after she had a very transient episode of substernal chest pain. She had never had this pain before. She was transported from the clinic via ambulance to the ED. Upon arrival in the ED she had no chest pain nor shortness of breath. No nausea vomiting dizziness diaphoresis or recent illnesses as noted. Pertinent ED workup EKG, sinus tach rate 102 Chest x-ray, scarring or atelectasis mild, Troponin negative D-dimer negative Nitropaste applied PRIMARY IMPRESSION Chest pain, rule out angina, ASA, nitro paste. Patient stress test T2DM, A1c 7.8% March 2017, not optimal. Increase metformin on discharge. Increase Levemir by 2 units HTN, within goal, on ARB, discontinue CCB and replaced with metoprolol, HCTZ. HLD, favorable lipid profile, continue statin therapy GERD Hepatic steatosis, favorable lipid profile Obesity, contributory risk factor. Outpatient management strategies Discharge planning, placed on beta tanya, IV fluid bolus Increase metformin on discharge, outpatient A1c, outpatient stress test. Nitroglycerin on discharge for now and continue aspirin.
[2017-08-25] MEDS ORDERED: Insulin Detemir 100 Units/ML 3 ML Pen SUBCUT SCH (10:39)
[2017-08-25] MEDS: Metoprolol Tartrate 25 MG Tab PO SCH ×2 (11:06→18:07)
[2017-08-25 18:09] VITALS: BP 137/80
== END 2017-08-25 18:55 | disposition home or self-care (01) ==
LOC: KA.ED 11:20 → KA.MS 12:41
PROVIDERS: ADMIT Physician Assistant Medical; ATTEND Nurse Practitioner Family
DX: R07.9 Chest pain, unspecified (principal); E11.9 Type 2 diabetes mellitus without complications; I10 Essential (primary) hypertension; E78.5 Hyperlipidemia, unspecified; K21.9 Gastro-esophageal reflux disease without esophagitis; E66.9 Obesity, unspecified; K76.0 Fatty (change of) liver, not elsewhere classified; Z79.4 Long term (current) use of insulin; Z79.899 Other long term (current) drug therapy; Z88.2 Allergy status to sulfonamides; Z79.82 Long term (current) use of aspirin
CPT/HCPCS: 36415; 71045; 80048; 80053; 82550; 82553; 82962; 83735; 84484; 85025; 85379; 93005; 96360; 99285; A9270; J1815; J7030

== ENCOUNTER 2019-03-01 15:18 | Observation (INO) | payer MEDICARE, MEDICAID ==
[2019-03-01] MEDS ORDERED: Diatrizoate Meglumine/Diatrizoate Sodium 37% 120 ML Bottle PO ONE (15:43)
[2019-03-01] MEDS ORDERED: Sodium Chloride 0.9% 50 ML IV SCH (15:45)
[2019-03-01] MEDS ORDERED: Iopamidol 755 Mg/ML 75 ML Bottle IVPUSH ONE (16:19)
[2019-03-01] MEDS ORDERED: Acetaminophen 325 MG Tab PO PRN (17:03)
[2019-03-01] MEDS: Sodium Chloride 0.9% 1,000 ML IV SCH (17:35)
--- NOTE | 2019-03-01 17:54 | CT ---
[id number] CT/CT Abdomen Pelvis W IV EXAM: ABDOMEN AND PELVIS CT WITH CONTRAST INDICATION: Abdominal pain with concern for obstruction. COMPARISON: June 07, 2014. DISCUSSION: A 3 mm noncalcified nodule in the right lung base and a tiny nodular focus along the right minor fissure are unchanged and of doubtful clinical significance. Coronary artery calcifications. Atherosclerotic plaque is scattered throughout the aorta and its major branches. Small fat-containing umbilical hernia. Cholecystectomy. Unenhanced images of the liver, spleen, pancreas, adrenal glands, kidneys, small bowel, large bowel and appendix are unremarkable. Specifically, there is no bowel dilation or other evidence of obstruction. Degenerative changes are seen in the spine. The osseous structures are otherwise unremarkable. IMPRESSION: 1. No evidence of bowel obstruction or other acute findings. Edison Vang MD 03/01/19 1862 Thank you for allowing us to participate in the care of your patient.
[2019-03-01] MEDS: Insulin Aspart 100 Units/ML 3 ML Pen SUBCUT SCH ×2 (18:23→22:17)
[2019-03-01] MEDS: Metoprolol Tartrate 50 MG Tab PO SCH (20:43)
[2019-03-01] MEDS ORDERED: atorvaSTATin 10 MG Tab PO SCH (21:00)
[2019-03-01] MEDS ORDERED: Metoprolol Tartrate 50 MG Tab PO SCH (21:00)
[2019-03-02] MEDS: Sodium Chloride 0.9% 1,000 ML IV SCH (03:22)
[2019-03-02] MEDS ORDERED: Omeprazole 20 MG Cap.CR PO SCH (07:00)
[2019-03-02] MEDS: Insulin Aspart 100 Units/ML 3 ML Pen SUBCUT SCH (08:10)
[2019-03-02 08:14] LABS: ANION GAP 16.3 mmol/L (5-15)
[2019-03-02] MEDS ORDERED: Polyethylene Glycol 3350 Powder 238 GM Bot PO SCH (09:00)
[2019-03-02] MEDS ORDERED: amLODIPine 5 MG Tab PO SCH (09:00)
[2019-03-02] MEDS ORDERED: Insulin Detemir 100 Units/ML 3 ML Pen SUBCUT SCH (09:00)
[2019-03-02] MEDS ORDERED: Hydrochlorothiazide 25 MG Tab PO SCH (09:00)
[2019-03-02] MEDS ORDERED: Losartan 50 MG Tab PO SCH (09:00)
[2019-03-02] MEDS: Metoprolol Tartrate 50 MG Tab PO SCH (09:20)
[2019-03-02 09:21] VITALS: BP 170/89
--- NOTE | 2019-03-02 10:40 | PCM.DCSUM1 ---
Discharge Summary - Hospital Course Diagnosis: Stroke: No - Discharge Data Discharge Date: 03/02/19 Discharge Disposition: Home, Self-Care 01 Condition: Good - Patient Instructions Diet: Usual Diet as Tolerated, Drink 8-10+ Glasses/Day Activity: As Tolerated Driving: May Drive Today Showering/Bathing: May Shower Notify Provider of: Fever, Increased Pain, Nausea and/or Vomiting - Discharge Plan *PRESCRIPTION DRUG MONITORING PROGRAM REVIEWED*: Not Applicable *COPY OF PRESCRIPTION DRUG MONITORING REPORT IN PATIENT IRMA: Not Applicable Home Medications: Home Meds Acetaminophen [Tylenol] 650 mg PO QID PRN 09/09/16 [History] Aspirin [Halfprin] 81 mg PO BRK 09/09/16 [History] Hydrochlorothiazide 25 mg PO DAILY 09/09/16 [History] atorvaSTATin [Lipitor] 10 mg PO BEDTIME 09/09/16 [History] Polyethylene Glycol [Polyox Wsr-301] 0.5 capful PO DAILY 03/30/17 [History] Calcitriol 0.25 mg PO Q48H 03/01/19 [History] Insulin Detemir [Levemir] 24 unit SQ DAILY 03/01/19 [History] Losartan [Cozaar] 100 mg PO DAILY 03/01/19 [History] Metoprolol Tartrate 50 mg PO BID 03/01/19 [History] Nystatin [Nyamyc] 1 applic TOP ASDIRECTED 03/01/19 [History] Omeprazole 20 mg PO ACBREAKFAST 03/01/19 [History] amLODIPine [Norvasc] 5 mg PO DAILY 03/01/19 [History] metFORMIN HCl [Metformin HCl] 1,000 mg PO BIDMEALS 03/01/19 [History] Referrals: Erik Lagos, LIBRARY MANAGER [Nurse Practitioner] - 03/04/19 (Monday [facility]. Have patient call for time. ) - Discharge Summary/Plan Comment DC Time >30 min.: Yes Discharge Summary/Plan Comment: final diagnosis constipation, improving History summary Riya is a 68yr female was admitted by Bryanna Lara when she came into the [facility] complaining of nonradiating right upper quadrant abdominal p that morning however had resolved. Had 1 diarrhea stool the day prior. At the time she denied any fever, chills, nausea, vomiting. Has intermittent issues with constipation and takes Miralax daily for this. Patient reported she had a colonoscopy in [place], [place] in 2013 and was told that she has scar tissue built up around her colon and it may cause her issues. Has had a cholecystectomy. she did receive a RUQ abdominal pain, to r/o bowel obstruction which demonstrated no obstructing pattern however prominent gas within the colon. hospital course patient's hospital course went very well. She had CT the abdomen and pelvis with contrast was demonstrated no acute pathology such as no bowel obstruction. She kept nothing by mouth in fluids running at 100 mL per hour. Metformin was held due to contrast CT. by the next morning on rounds her vital signs are stable, absolutely no abdominal pain and was wanting to go home. white count was normal. Electrolyte were normal. Medication changes/adjustments upon discharge None disposition patient was discharged from the hospital with follow-up [facility]. Careful instructions were given to her on follow-up - General Info Date of Service: 03/02/19 Functional Status: Reports: Pain Controlled - Review of Systems General: Reports: No Symptoms HEENT: Reports: No Symptoms Pulmonary: Reports: No Symptoms Cardiovascular: Reports: No Symptoms Gastrointestinal: Reports: No Symptoms. Denies: Abdominal Pain, Constipation, Decreased Appetite, Diarrhea, Melena, Nausea, Vomiting Genitourinary: Reports: No Symptoms Musculoskeletal: Reports: No Symptoms Skin: Denies: Dryness Psychiatric: Denies: Agitation - Patient Data Vitals - Most Recent: Last Vital Signs Temp 98.6 F 03/02/19 06:15 Pulse 98 03/02/19 09:20 Resp 16 03/02/19 06:15 BP 170/89 H 03/02/19 09:20 Pulse Ox 97 03/02/19 06:15 Weight - Most Recent: 165 lb 12.8 oz I&O - Last 24 hours: Intake & Output 03/01/19 03/02/19 03/02/19 22:59 06:59 14:59 Intake Total 692 776 Balance 692 776 Lab Results - Last 24 hrs: Laboratory Results - last 24 hr 03/01/19 03/01/19 03/02/19 Range/Units 17:40 22:11 07:15 WBC 7.63 (5.00-10.00) 10^3/uL RBC 4.30 (3.80-5.50) 10^6/uL Hgb 12.4 (12.0-16.0) g/dL Hct 36.3 L (37.0-47.0) % MCV 84.4 (82.0-92.0) fL MCH 28.8 (27.0-31.0) pg MCHC 34.2 (32.0-36.0) g/dL RDW 12.5 (11.5-14.5) % Plt Count 354 (150-400) 10^3/uL MPV 10.5 H (7.4-10.4) fL Immature Gran % (Auto) 0.1 (0.0-5.0) % Neut % (Auto) 73.1 H (50.0-70.0) % Lymph % (Auto) 18.6 L (20.0-40.0) % [place] % (Auto) 6.4 (2.0-8.0) % Eos % (Auto) 1.3 (1.0-3.0) % Baso % (Auto) 0.5 (0.0-1.0) % Immature Gran # (Auto) 0.01 (0.00-0.50) 10^3/uL Neut # (Auto) 5.57 (2.50-7.00) 10^3/uL Lymph # (Auto) 1.42 (1.00-4.00) 10^3/uL [place] # (Auto) 0.49 (0.10-0.80) 10^3/uL Eos # (Auto) 0.10 (0.10-0.30) 10^3/uL Baso # (Auto) 0.04 (0.00-0.10) 10^3/uL Sodium (136-145) mmol/L Potassium (3.3-5.3) mmol/L Chloride (98-115) mmol/L Carbon Dioxide (21.0-32.0) mmol/L Anion Gap (5-15) mmol/L BUN (6-25) mg/dL Creatinine (0.51-1.17) mg/dL Est Cr Clr Drug Dosing mL/min Estimated GFR (MDRD) mL/min Glucose (75 - 99) mg/dL POC Glucose 142 H 272 H (74-106) mg/dl Calcium (8.7-10.3) mg/dL 03/02/19 03/02/19 Range/Units 07:15 07:55 WBC (5.00-10.00) 10^3/uL RBC (3.80-5.50) 10^6/uL Hgb (12.0-16.0) g/dL Hct (37.0-47.0) % MCV (82.0-92.0) fL MCH (27.0-31.0) pg MCHC (32.0-36.0) g/dL RDW (11.5-14.5) % Plt Count (150-400) 10^3/uL MPV (7.4-10.4) fL Immature Gran % (Auto) (0.0-5.0) % Neut % (Auto) (50.0-70.0) % Lymph % (Auto) (20.0-40.0) % [place] % (Auto) (2.0-8.0) % Eos % (Auto) (1.0-3.0) % Baso % (Auto) (0.0-1.0) % Immature Gran # (Auto) (0.00-0.50) 10^3/uL Neut # (Auto) (2.50-7.00) 10^3/uL Lymph # (Auto) (1.00-4.00) 10^3/uL [place] # (Auto) (0.10-0.80) 10^3/uL Eos # (Auto) (0.10-0.30) 10^3/uL Baso # (Auto) (0.00-0.10) 10^3/uL Sodium 142 (136-145) mmol/L Potassium 3.4 (3.3-5.3) mmol/L Chloride 102 (98-115) mmol/L Carbon Dioxide 27.1 (21.0-32.0) mmol/L Anion Gap 16.3 H (5-15) mmol/L BUN 12 (6-25) mg/dL Creatinine 0.95 (0.51-1.17) mg/dL Est Cr Clr Drug Dosing 42.17 mL/min Estimated GFR (MDRD) 58 mL/min Glucose 172 H (75 - 99) mg/dL POC Glucose 163 H (74-106) mg/dl Calcium 9.3 (8.7-10.3) mg/dL Med Orders - Current: Current Medications Acetaminophen (Tylenol) 650 mg PO QID PRN PRN Reason: Pain Amlodipine Besylate (Norvasc) 5 mg PO DAILY [facility] Last Admin: 03/02/19 09:20 Dose: 5 mg Atorvastatin Calcium (Lipitor) 10 mg PO BEDTIME [facility] Last Admin: 03/01/19 20:44 Dose: 10 mg Calcitriol (Rocaltrol) 0.25 mcg PO Q48H [facility] Hydrochlorothiazide (Hydrochlorothiazide) 25 mg PO DAILY [facility] Last Admin: 03/02/19 09:20 Dose: 25 mg Sodium Chloride (Normal Saline) 1,000 mls @ 100 mls/hr IV ASDIRECTED [facility] Last Admin: 03/02/19 03:22 Dose: 100 mls/hr Sodium Chloride (Normal Saline) 50 mls @ 200 mls/min IV ASDIRECTED [facility] Last Admin: 03/01/19 17:36 Dose: 200 mls/min Insulin Aspart (Novolog) 0 unit SUBCUT WITHMEALSANDBED [facility]; Protocol Last Admin: 03/02/19 08:10 Dose: 1 units Insulin Detemir (Levemir) 24 unit SUBCUT DAILY [facility] Last Admin: 03/02/19 09:17 Dose: 24 units Losartan Potassium (Cozaar) 100 mg PO DAILY [facility] Last Admin: 03/02/19 09:20 Dose: 100 mg Metoprolol Tartrate (Lopressor) 50 mg PO BID [facility] Last Admin: 03/02/19 09:20 Dose: 50 mg Omeprazole (Omeprazole) 20 mg PO ACBREAKFAST@0700 [facility] Polyethylene Glycol (Miralax) 0 gm PO DAILY [facility] Last Admin: 03/02/19 09:21 Dose: Not Given Discontinued Medications Diatrizoate Meglum/Diatrizoate Sod (Gastrografin 37%) 120 ml PO ONETIME ONE Stop: 03/01/19 15:44 Last Admin: 03/01/19 17:36 Dose: 30 ml Iopamidol (Isovue-370 (76%)) 75 ml IVPUSH ONETIME ONE Stop: 03/01/19 16:20 Last Admin: 03/01/19 17:36 Dose: 75 ml Metoprolol Tartrate (Lopressor) 5 mg PO BID [facility] Omeprazole (Omeprazole) 20 mg PO ACBREAKFAST [facility] Last Admin: 03/02/19 06:02 Dose: 20 mg - Exam General: Reports: Alert, Oriented Neck: Reports: Supple Lungs: Reports: Clear to Auscultation, Normal Respiratory Effort Cardiovascular: Reports: Regular Rate, Regular Rhythm GI/Abdominal Exam: Normal Bowel Sounds, Soft, Non-Tender, No Organomegaly, No Distention. No: Distended, Guarding, Rigid, Mass, Hepatomegaly (Female) Exam: Deferred Back Exam: Denies: CVA Tenderness (L), CVA Tenderness (R) Skin: Reports: Warm, Dry, Intact Psy/Mental Status: Reports: Alert, Normal Affect, Normal Mood
[2019-03-03] MEDS ORDERED: Omeprazole 20 MG Cap.CR PO SCH (07:00)
[2019-03-03] MEDS ORDERED: Calcitriol 0.25 MCG Cap PO SCH (09:00)
== END 2019-03-02 11:12 | disposition home or self-care (01) ==
LOC: KA.MS 15:18
PROVIDERS: ADMIT Nurse Practitioner Family; ATTEND Nurse Practitioner Family
DX: R10.11 Right upper quadrant pain (principal); K59.09 Other constipation; R19.7 Diarrhea, unspecified; K21.9 Gastro-esophageal reflux disease without esophagitis; I12.9 Hypertensive chronic kidney disease with stage 1 through stage 4 chronic kidney disease, or unspecified chronic kidney disease; E11.22 Type 2 diabetes mellitus with diabetic chronic kidney disease; N18.3 Chronic kidney disease, stage 3 (moderate); E78.2 Mixed hyperlipidemia; E66.9 Obesity, unspecified; Z90.49 Acquired absence of other specified parts of digestive tract; Z68.30 Body mass index [BMI] 30.0-30.9, adult; Z79.82 Long term (current) use of aspirin; Z79.4 Long term (current) use of insulin; Z79.899 Other long term (current) drug therapy
CPT/HCPCS: 36415; 74177; 80048; 82962; 85025; A9270; J1815; J7030; J7050; Q9963; Q9967; 96360; 96361; 96372; G0378

== ENCOUNTER 2019-09-03 02:50 | Emergency (ER) | payer MEDICARE, MEDICAID ==
[2019-09-03] MEDS ORDERED: Sodium Chloride 0.9% 1,000 ML IV ONE (03:40)
--- NOTE | 2019-09-03 03:49 | EDM.PDOC ---
ED HPI GENERAL MEDICAL PROBLEM - General Chief Complaint: Abdominal Pain Stated Complaint: Abdomen pain Time Seen by Provider: 09/03/19 03:40 Source of Information: Reports: Patient History Limitations: Reports: No Limitations - History of Present Illness INITIAL COMMENTS - FREE TEXT/NARRATIVE: Patient presents via ambulance with RLQ pain that started about two hours ago. She says the pain is better now but in 2013 she was told, after a colonoscopy, that she had a twisted bowel and scar tissue that may need surgery eventually. She hasn't passed any stool or gas in the last two hours. She had a normal bowel movement yesterday. She still has her appendix. She thinks she has some degree of kidney disease. Right Lower Abdomen Pain Score (Numeric/FACES): 5 - Related Data Allergies Allergy/AdvReac Type Severity Reaction Status Date / Time Sulfa (Sulfonamide Allergy Nausea Verified 09/03/19 03:31 Antibiotics) Home Meds: Home Meds Acetaminophen [Tylenol] 650 mg PO QID PRN 09/09/16 [History] Aspirin [Halfprin] 81 mg PO BRK 09/09/16 [History] Hydrochlorothiazide 25 mg PO DAILY 09/09/16 [History] atorvaSTATin [Lipitor] 10 mg PO BEDTIME 09/09/16 [History] Polyethylene Glycol [Polyox Wsr-301] 0.5 capful PO DAILY 03/30/17 [History] Insulin Detemir [Levemir] 24 unit SQ DAILY 03/01/19 [History] Losartan [Cozaar] 100 mg PO DAILY 03/01/19 [History] Metoprolol Tartrate 50 mg PO BID 03/01/19 [History] Omeprazole 20 mg PO ACBREAKFAST 03/01/19 [History] amLODIPine [Norvasc] 5 mg PO BID 03/01/19 [History] calcitrioL [Calcitriol] 0.25 mg PO Q48H 03/01/19 [History] metFORMIN HCl [Metformin HCl] 1,000 mg PO BIDMEALS 03/01/19 [History] Past Medical History HEENT History: Reports: Impaired Vision Other HEENT History: wears glasses Cardiovascular History: Reports: Hypertension Respiratory History: Reports: None Gastrointestinal History: Reports: GERD Genitourinary History: Reports: None [employer]PER[employer]OR [employer] History: Reports: Other (See Below) Other [employer]OR [employer] History: previous D&C? Musculoskeletal History: Reports: Fracture, RA Neurological History: Reports: None Psychiatric History: Reports: None Endocrine/Metabolic History: Reports: Diabetes, Type II, Obesity/BMI 30+ Hematologic History: Reports: None Immunologic History: Reports: None Oncologic (Cancer) History: Reports: None Dermatologic History: Reports: None - Infectious Disease History Infectious Disease History: Reports: Chicken Pox, Measles, Mumps - Past Surgical History Head Surgeries/Procedures: Reports: None HEENT Surgical History: Reports: None, Tonsillectomy Cardiovascular Surgical History: Reports: None Respiratory Surgical History: Reports: None GI Surgical History: Reports: Cholecystectomy, Colonoscopy Female Surgical History: Reports: None Endocrine Surgical History: Reports: None Neurological Surgical History: Reports: None Musculoskeletal Surgical History: Reports: None Oncologic Surgical History: Reports: None Dermatological Surgical History: Reports: None Social & Family History - Family History Family Medical History: Noncontributory HEENT: Reports: None Cardiac: Reports: Other (See Below) Respiratory: Reports: None GI: Reports: None : Reports: None OBGYN: Reports: None Musculoskeletal: Reports: None Neurological: Reports: None Psychiatric: Reports: None Endocrine/Metabolic: Reports: None Hematologic: Reports: None Immunologic: Reports: None Dermatologic: Reports: None Oncologic: Reports: None - Caffeine Use Caffeine Use: Reports: None ED ROS GENERAL - Review of Systems Review Of Systems: See Below Constitutional: Denies: Fever, Malaise, Weakness HEENT: Reports: No Symptoms Respiratory: Denies: Shortness of Breath, Cough Cardiovascular: Denies: Chest Pain, Lightheadedness, Syncope Endocrine: Denies: Fatigue GI/Abdominal: Reports: Abdominal Pain. Denies: Constipation, Diarrhea, Vomiting : Denies: Dysuria, Flank Pain Musculoskeletal: Denies: Neck Pain, Shoulder Pain, Arm Pain, Back Pain, Hand Pain Skin: Denies: Cyanosis, Jaundice, Mottled, Pallor, Diaphoresis Neurological: Denies: Confusion, Dizziness, Seizure, Syncope, Trouble Speaking, Difficulty Walking Psychiatric: Denies: Agitation, Anxiety, Confusion ED EXAM, GI/ABD - Physical Exam Exam: See Below Exam Limited By: No Limitations General Appearance: Alert, WD/WN, No Apparent Distress Eyes: Bilateral: Normal Appearance, EOMI Ears: Normal External Exam, Hearing Grossly Normal Nose: Normal Inspection, No Blood Throat/Mouth: Normal Inspection, Normal Lips, Normal Voice, No Airway Compromise Head: Atraumatic, Normocephalic Neck: Normal Inspection, Full Range of Motion Respiratory/Chest: No Respiratory Distress, Lungs Clear, Normal Breath Sounds, No Accessory Muscle Use Cardiovascular: Regular Rate, Rhythm, No Murmur GI/Abdominal Exam: Soft, No Organomegaly, No Distention, No Abnormal Bruit, No Mass, Tender (RLQ), Abnormal Bowel Sounds (decreased) Back Exam: Normal Inspection, Full Range of Motion. No: CVA Tenderness (L), CVA Tenderness (R) Extremities: Normal Inspection, Normal Range of Motion Neurological: Alert, Oriented, Normal Cognition, No Motor/Sensory Deficits Psychiatric: Normal Affect, Normal Mood Skin Exam: Warm, Dry, Intact, Normal Color, No Rash Course - Vital Signs Last Recorded V/S: Last Vital Signs Temp 97.9 F 09/03/19 05:10 Pulse 90 09/03/19 05:10 Resp 18 09/03/19 05:10 BP 144/62 H 09/03/19 05:10 Pulse Ox 98 09/03/19 05:10 - Orders/Labs/Meds Orders: Active Orders 24 hr Category Date Time Status Abdomen Pelvis w Cont [CT] Stat Exams 09/03/19 03:41 Ordered Sodium Chloride 0.9% [Normal Saline] 50 ml Med 09/03/19 04:00 Active IV ASDIRECTED Medication Orders Sodium Chloride (Normal Saline) 50 mls @ 200 mls/min IV ASDIRECTED TERA Labs: Laboratory Tests 09/03/19 09/03/19 09/03/19 Range/Units 03:20 03:20 03:41 WBC 10.29 H (5.00-10.00) 10^3/uL RBC 4.19 (3.80-5.50) 10^6/uL Hgb 11.5 L (12.0-16.0) g/dL Hct 35.0 L (37.0-47.0) % MCV 83.5 (82.0-92.0) fL MCH 27.4 (27.0-31.0) pg MCHC 32.9 (32.0-36.0) g/dL RDW 12.6 (11.5-14.5) % Plt Count 392 (150-400) 10^3/uL MPV 10.6 H (7.4-10.4) fL Immature Gran % (Auto) 0.2 (0.0-5.0) % Neut % (Auto) 78.9 H (50.0-70.0) % Lymph % (Auto) 14.8 L (20.0-40.0) % Meriwether % (Auto) 4.3 (2.0-8.0) % Eos % (Auto) 1.1 (1.0-3.0) % Baso % (Auto) 0.7 (0.0-1.0) % Immature Gran # (Auto) 0.02 (0.00-0.50) 10^3/uL Neut # (Auto) 8.13 H (2.50-7.00) 10^3/uL Lymph # (Auto) 1.52 (1.00-4.00) 10^3/uL Meriwether # (Auto) 0.44 (0.10-0.80) 10^3/uL Eos # (Auto) 0.11 (0.10-0.30) 10^3/uL Baso # (Auto) 0.07 (0.00-0.10) 10^3/uL Sodium 138 (136-145) mmol/L Potassium 3.2 L (3.3-5.3) mmol/L Chloride 98 (98-115) mmol/L Carbon Dioxide 21.8 (21.0-32.0) mmol/L Anion Gap 21.4 H (5-15) mmol/L BUN 22 (6-25) mg/dL Creatinine 1.14 (0.51-1.17) mg/dL Est Cr Clr Drug Dosing 36.32 mL/min Estimated GFR (MDRD) 47 mL/min Glucose 233 H (75 - 99) mg/dL Lactic Acid (0.4-2.0) mmol/L Calcium 9.2 (8.7-10.3) mg/dL Total Bilirubin 0.4 (0.2-1.0) mg/dL AST 13 L (15-37) U/L ALT 16 (12-78) U/L Alkaline Phosphatase 58 (46-116) IU/L C-Reactive Protein < 0.2 (0.0-0.9) mg/dL Total Protein 8.0 (6.4-8.2) g/dL Albumin 3.95 (3.00-4.80) g/dL Specimen Type Urincc Urine Color Light yellow (YELLOW) Urine Appearance Clear (CLEAR) Urine pH 5.5 (5.0-9.0) Ur Specific Crum 1.010 (1.005-1.030) Urine Protein Negative (NEGATIVE) mg/dL Urine Glucose (UA) Negative (NEGATIVE) mg/dL Urine Ketones Negative (NEGATIVE) mg/dL Urine Occult Blood Trace-lysed H (NEGATIVE) Urine Nitrite Negative (NEGATIVE) Urine Bilirubin Negative (NEGATIVE) Urine Urobilinogen 0.2 (0.2-1.0) E.U./dL Ur Leukocyte Esterase Small H (NEGATIVE) Urine RBC 0-5 (0-5) /HPF Urine WBC 0-5 (0-5) /HPF Ur Epithelial Cells Few /LPF Urine Bacteria Rare (NONE TO FEW) /HPF 09/03/19 Range/Units 03:45 WBC (5.00-10.00) 10^3/uL RBC (3.80-5.50) 10^6/uL Hgb (12.0-16.0) g/dL Hct (37.0-47.0) % MCV (82.0-92.0) fL MCH (27.0-31.0) pg MCHC (32.0-36.0) g/dL RDW (11.5-14.5) % Plt Count (150-400) 10^3/uL MPV (7.4-10.4) fL Immature Gran % (Auto) (0.0-5.0) % Neut % (Auto) (50.0-70.0) % Lymph % (Auto) (20.0-40.0) % Meriwether % (Auto) (2.0-8.0) % Eos % (Auto) (1.0-3.0) % Baso % (Auto) (0.0-1.0) % Immature Gran # (Auto) (0.00-0.50) 10^3/uL Neut # (Auto) (2.50-7.00) 10^3/uL Lymph # (Auto) (1.00-4.00) 10^3/uL Meriwether # (Auto) (0.10-0.80) 10^3/uL Eos # (Auto) (0.10-0.30) 10^3/uL Baso # (Auto) (0.00-0.10) 10^3/uL Sodium (136-145) mmol/L Potassium (3.3-5.3) mmol/L Chloride (98-115) mmol/L Carbon Dioxide (21.0-32.0) mmol/L Anion Gap (5-15) mmol/L BUN (6-25) mg/dL Creatinine (0.51-1.17) mg/dL Est Cr Clr Drug Dosing mL/min Estimated GFR (MDRD) mL/min Glucose (75 - 99) mg/dL Lactic Acid 2.7 H (0.4-2.0) mmol/L Calcium (8.7-10.3) mg/dL Total Bilirubin (0.2-1.0) mg/dL AST (15-37) U/L ALT (12-78) U/L Alkaline Phosphatase (46-116) IU/L C-Reactive Protein (0.0-0.9) mg/dL Total Protein (6.4-8.2) g/dL Albumin (3.00-4.80) g/dL Specimen Type Urine Color (YELLOW) Urine Appearance (CLEAR) Urine pH (5.0-9.0) Ur Specific Crum (1.005-1.030) Urine Protein (NEGATIVE) mg/dL Urine Glucose (UA) (NEGATIVE) mg/dL Urine Ketones (NEGATIVE) mg/dL Urine Occult Blood (NEGATIVE) Urine Nitrite (NEGATIVE) Urine Bilirubin (NEGATIVE) Urine Urobilinogen (0.2-1.0) E.U./dL Ur Leukocyte Esterase (NEGATIVE) Urine RBC (0-5) /HPF Urine WBC (0-5) /HPF Ur Epithelial Cells /LPF Urine Bacteria (NONE TO FEW) /HPF Meds: Medications Generic Name Dose Route Start Last Admin Trade Name Freq PRN Reason Stop Dose Admin Sodium Chloride 50 mls @ 200 mls/min 09/03/19 04:00 Normal Saline IV ASDIRECTED TERA Discontinued Medications Generic Name Dose Route Start Last Admin Trade Name Freq PRN Reason Stop Dose Admin Sodium Chloride 1,000 mls @ 999 mls/hr 09/03/19 03:40 09/03/19 03:45 Normal Saline IV 09/03/19 04:40 999 mls/hr .BOLUS ONE Administration Iopamidol 100 ml 09/03/19 03:49 09/03/19 05:12 Isovue-370 (76%) IV 09/03/19 03:50 Not Given ONETIME ONE Lorazepam Confirm 09/03/19 04:13 09/03/19 04:52 Ativan Administered 09/03/19 04:14 Not Given Dose 2 mg .ROUTE .[facility]-MED ONE - Re-Assessments/Exams Free Text/Narrative Re-Assessment/Exam: 09/03/19 05:25 Labs okay with slightly elevated WBC and leukocyte esterase. She is asymptomatic so this can be followed in clinic. We discussed the findings including mild constipation which may be causing her abdominal pain. There is no obstruction noted on CT but mild constipation and right renal artery stenosis from calcific atherosclerosis which should have non-emergent followup to further characterize per radiologist. Patient is feeling good now and the pain in the abdomen has been minimal since arrival to ER. She is discharged to home in stable condition. Departure - Departure Time of Disposition: 05:14 Disposition: Home, Self-Care 01 Condition: Good Clinical Impression: Atherosclerotic renal artery stenosis Abdominal pain Qualifiers: Abdominal location: right lower quadrant Qualified Code(s): R10.31 - Right lower quadrant pain Constipation Qualifiers: Constipation type: unspecified constipation type Qualified Code(s): K59.00 - Constipation, unspecified - Discharge Information Instructions: Constipation, Adult, [id number] Forms: ED Department Discharge Additional Instructions: 1. Don't take your Metformin for 48 hours, then resume as usual. This is due to the CT contrast dye. 2. Drink 8 cups of water daily. 3. To help the constipation you should take a double or triple dose of your polyethylene glycol (Miralax) for the next couple days. 4. For the narrowed artery to your kidney you may need an ultrasound. This can be discussed with your PCP at the next visit. 5. Follow up with your PCP in 3-7 days for recheck, sooner if worsening. Sepsis Event Note - Evaluation Sepsis Screening Result: No Definite Risk - Focused Exam Vital Signs: Vital Signs Temp Pulse Resp BP Pulse Ox 09/03/19 05:10 97.9 F 90 18 144/62 H 98 09/03/19 04:00 94 16 97 09/03/19 03:00 97.7 F 108 H 18 144/69 H 99 Date Exam was Performed: 09/03/19 Time Exam was Performed: 05:25 - My Orders Last 24 Hours: My Active Orders 09/03/19 03:41 Abdomen Pelvis w Cont [CT] Stat 09/03/19 04:00 Sodium Chloride 0.9% [Normal Saline] 50 ml IV ASDIRECTED - Assessment/Plan Last 24 Hours: My Active Orders 09/03/19 03:41 Abdomen Pelvis w Cont [CT] Stat 09/03/19 04:00 Sodium Chloride 0.9% [Normal Saline] 50 ml IV ASDIRECTED
[2019-09-03] MEDS ORDERED: Sodium Chloride 0.9% 50 ML IV SCH (04:00)
[2019-09-03 04:03] LABS: ANION GAP 21.4 mmol/L (5-15); CHLORIDE,CL 98 mmol/L (98-115); SODIUM,NA 138 mmol/L (136-145)
[2019-09-03] MEDS ORDERED: LORazepam 2 MG/ML SDV ONE (04:13)
[2019-09-03 05:11] VITALS: BP 144/62; PULSE 90
[2019-09-03] MEDS: Iopamidol 755 Mg/ML 100 ML Bottle IV ONE ×2 (05:12→07:49)
--- NOTE | 2019-09-03 08:54 | CT ---
[id number] CT/CT Abdomen Pelvis W IV EXAM: ABDOMEN AND PELVIS CT WITH CONTRAST INDICATION: RLQ PAIN COMPARISON: None. DISCUSSION: Mild cardiomegaly. Small hiatus hernia and small fat-containing umbilical hernia. Cholecystectomy. Mildly prominent colonic stool volume. Atherosclerotic plaque is seen scattered throughout the abdominal aorta and its major branches with significant ostial stenosis suggested of the right renal artery at its origin. The liver, pancreas, spleen, adrenal glands, kidneys, small bowel, and the appendix are normal in appearance. No adenopathy, free air or free fluid. Degenerative changes in the spine and hips. The osseous structures are otherwise unremarkable. IMPRESSION: 1. Mildly prominent colonic stool volume. 2. Normal appendix. Edison Vang MD 09/03/19 0853 Thank you for allowing us to participate in the care of your patient.
== END 2019-09-03 06:00 | disposition home or self-care (01) ==
LOC: KA.ED 02:50
DX: I70.1 Atherosclerosis of renal artery (principal); K59.00 Constipation, unspecified; I10 Essential (primary) hypertension; E11.9 Type 2 diabetes mellitus without complications; Z88.2 Allergy status to sulfonamides; Z79.899 Other long term (current) drug therapy; Z79.4 Long term (current) use of insulin
CPT/HCPCS: 36415; 74177; 80053; 81001; 83605; 85025; 86140; 96360; 99284; 99284-25; J7030; J7050; Q9967

== ENCOUNTER 2020-08-15 14:30 | Emergency (ER) | payer MEDICARE, MEDICAID ==
--- NOTE | 2020-08-15 14:57 | EDM.PDOC ---
ED HPI GENERAL MEDICAL PROBLEM - General Chief Complaint: General Stated Complaint: LEFT WRIST INJURY Time Seen by Provider: 08/15/20 14:40 Source of Information: Reports: Patient, EMS History Limitations: Reports: No Limitations - History of Present Illness INITIAL COMMENTS - FREE TEXT/NARRATIVE: 70 YO WF PRESENTS TO ER AFTER SLIP AND FALL WHILE LEAVING HER HOUSE TODAY. PT REPORTS SHE FELL FORWARD ON AN OUTSTRETCHED HAND AND COMPLAINS OF LEFT WRIST PAIN. PT STATES SHE LANDED ON THE GRASS BUT HER EYE GLASSES CAUSED A LACERATION OVER HER LEFT EYEBROW. PT DENIES LOSS OF CONSCIOUSNESS, NO HEADACHE OR NECK PAIN. PT DENIES ANY OTHER INJURIES. PT ALERT AND ORIENTED X 4, GCS-15, NO ORBITAL TENDERNESS, OR FACIAL TENDERNESS. PT WITH SWELLING/BRUISING AROUND LEFT EYE. PY UNSURE OF LAST TETANUS. PT DENIES BLOOD THINNERS BUT TAKES A BABY ASPIRIN DAILY. Onset: Today Location: Reports: Head, Upper Extremity, Left Quality: Reports: Ache Severity: Mild Improves with: Reports: Rest Worsens with: Reports: None Associated Symptoms: Reports: No Other Symptoms. Denies: Fever/Chills, Syncope, Weakness - Related Data Allergies Allergy/AdvReac Type Severity Reaction Status Date / Time Sulfa (Sulfonamide Allergy Nausea Verified 09/03/19 03:31 Antibiotics) Home Meds: Home Meds Acetaminophen [Tylenol] 650 mg PO QID PRN 09/09/16 [History] Aspirin [Halfprin] 81 mg PO BRK 09/09/16 [History] Hydrochlorothiazide 25 mg PO DAILY 09/09/16 [History] atorvaSTATin [Lipitor] 10 mg PO BEDTIME 09/09/16 [History] Polyethylene Glycol [Polyox Wsr-301] 0.5 capful PO DAILY 03/30/17 [History] Insulin Detemir [Levemir] 24 unit SQ DAILY 03/01/19 [History] Losartan [Cozaar] 100 mg PO DAILY 03/01/19 [History] Metoprolol Tartrate 50 mg PO BID 03/01/19 [History] Omeprazole 20 mg PO ACBREAKFAST 03/01/19 [History] amLODIPine [Norvasc] 5 mg PO BID 03/01/19 [History] calcitrioL [Calcitriol] 0.25 mg PO Q48H 03/01/19 [History] metFORMIN HCl [Metformin HCl] 1,000 mg PO BIDMEALS 03/01/19 [History] Past Medical History HEENT History: Reports: Impaired Vision Other HEENT History: wears glasses Cardiovascular History: Reports: Hypertension Respiratory History: Reports: None Gastrointestinal History: Reports: GERD Other Gastrointestinal History: States twisted intestine with scar tissue noted on colonoscopy in 2013. Genitourinary History: Reports: None MEDICAL LANGUAGE SPECIALIST History: Reports: Other (See Below) Other MEDICAL LANGUAGE SPECIALIST History: previous D&C? Musculoskeletal History: Reports: Fracture, RA Neurological History: Reports: None Psychiatric History: Reports: None Endocrine/Metabolic History: Reports: Diabetes, Type II, Obesity/BMI 30+ Hematologic History: Reports: None Immunologic History: Reports: None Oncologic (Cancer) History: Reports: None Dermatologic History: Reports: None - Infectious Disease History Infectious Disease History: Reports: Chicken Pox, Measles, Mumps - Past Surgical History Head Surgeries/Procedures: Reports: None HEENT Surgical History: Reports: None, Tonsillectomy Cardiovascular Surgical History: Reports: None Respiratory Surgical History: Reports: None GI Surgical History: Reports: Cholecystectomy, Colonoscopy Female Surgical History: Reports: None Endocrine Surgical History: Reports: None Neurological Surgical History: Reports: None Musculoskeletal Surgical History: Reports: None Oncologic Surgical History: Reports: None Dermatological Surgical History: Reports: None Social & Family History - Family History Family Medical History: No Pertinent Family History HEENT: Reports: None Cardiac: Reports: Other (See Below) Respiratory: Reports: None GI: Reports: None : Reports: None OBGYN: Reports: None Musculoskeletal: Reports: None Neurological: Reports: None Psychiatric: Reports: None Endocrine/Metabolic: Reports: None Hematologic: Reports: None Immunologic: Reports: None Dermatologic: Reports: None Oncologic: Reports: None - Caffeine Use Caffeine Use: Reports: None ED ROS GENERAL - Review of Systems Review Of Systems: See Below Constitutional: Reports: No Symptoms HEENT: Reports: Glasses Respiratory: Reports: No Symptoms Cardiovascular: Reports: No Symptoms Endocrine: Reports: No Symptoms GI/Abdominal: Reports: No Symptoms : Reports: No Symptoms Musculoskeletal: Reports: Arm Pain Skin: Reports: Wound (3CM LACERATION TO LEFT EYEBROW) Neurological: Reports: No Symptoms Psychiatric: Reports: No Symptoms Hematologic/Lymphatic: Reports: No Symptoms Immunologic: Reports: No Symptoms ED EXAM, GENERAL - Physical Exam Exam: See Below Exam Limited By: No Limitations General Appearance: Alert, WD/WN, No Apparent Distress Eye Exam: Bilateral Eye: EOMI, PERRL Nose: Normal Inspection, Normal Mucosa, No Blood Throat/Mouth: Normal Inspection, Normal Lips, Normal Teeth, Normal Gums, Normal Oropharynx, Normal Voice, No Airway Compromise Head: Normocephalic, Facial Swelling. No: Facial Tenderness, Sinus Tenderness Neck: Normal Inspection, Supple, Non-Tender, Full Range of Motion Respiratory/Chest: No Respiratory Distress, Lungs Clear, Normal Breath Sounds, No Accessory Muscle Use, Chest Non-Tender Cardiovascular: Normal Peripheral Pulses, Regular Rate, Rhythm, No Edema, No Gallop, No JVD, No Murmur, No Rub GI/Abdominal: Normal Bowel Sounds, Soft, Non-Tender, No Organomegaly, No Distention, No Abnormal Bruit, No Mass Back Exam: Normal Inspection, Full Range of Motion, NT Extremities: Normal Inspection, Normal Range of Motion, Non-Tender, Normal Capillary Refill, No Pedal Edema Neurological: Alert, Oriented, CN II-XII Intact, Normal Cognition, Normal Gait, No Motor/Sensory Deficits Psychiatric: Normal Affect, Normal Mood Skin Exam: Wound/Incision (3CM LACERATION TO LEFT EYEBROW) Lymphatic: No Adenopathy ED GENERAL MEDICAL PROCEDURES - Laceration/Wound Repair Left Face Lac/wound length in cm: 3 Appearance: Superficial Anesthetic Type: Local Local Anesthesia - Lidocaine (Xylocaine): 1% Plain Local Anesthetic Volume: 5cc Skin Prep: Chlorhexidine (Hibiciens), Saline Exploration/Debridement/Repair: Wound Explored, In a Bloodless Field Closed with: Sutures Suture Size: 5-0 # of Sutures: 6 Suture Type: Prolene, Interrupted, Simple Sterile Dressing Applied: None Tetanus Status Addressed: Yes Complications: No - Splinting Left Upper Extremity Splint Site: left wrist Pre-procedure NV status: Normal Post-procedure NV status: Normal Splint Type: Custom Splint Material: Fiberglass Splint Design: Sugar Tong Applied & Form Fitted By: Provider Provider Post-Splint Application NV Check: NV Status Normal, Good Position Complications: No Course - Vital Signs Last Recorded V/S: Last Vital Signs Temp 97.5 F 08/15/20 14:52 Pulse 102 H 08/15/20 14:52 Resp 18 08/15/20 14:52 BP 147/84 H 08/15/20 14:52 Pulse Ox 98 08/15/20 14:52 - Orders/Labs/Meds Meds: Medications Discontinued Medications Generic Name Dose Route Start Last Admin Trade Name Jaclyn PRN Reason Stop Dose Admin Lidocaine HCl Confirm 08/15/20 15:14 Xylocaine 1% Administered 08/15/20 15:15 Dose 20 ml .ROUTE .[facility]-MED ONE - Radiology Interpretation Free Text/Narrative:: CT HEAD- NAD; PRE-EXISTING RIGHT SIDED NASOPHARYNGEAL MASS- NEEDS FOLLOW UP LEFT WRIST- NONDISPLACED DISTAL LEFT RADIAL AND ULNAR FRACTURE Departure - Departure Time of Disposition: 15:54 Disposition: Home, Self-Care 01 Condition: Good Clinical Impression: Nasopharyngeal mass Laceration of eyebrow Qualifiers: Encounter type: initial encounter Laterality: left Qualified Code(s): S01.112A - Laceration without foreign body of left eyelid and periocular area, initial encounter Fracture of ulna with radius, closed Qualifiers: Encounter type: initial encounter Laterality: left Qualified Code(s): S52.92XA - Unspecified fracture of left forearm, initial encounter for closed fracture; S52.202A - Unspecified fracture of shaft of left ulna, initial encounter for closed fracture - Discharge Information Instructions: Facial Laceration, [id number], Radial Fracture Forms: ED Department Discharge Additional Instructions: 1. DISCHARGE HOME 2. WOUND CARE INSTRUCTIONS GIVEN 3. SUTURE REMOVAL 5-7 DAYS 4. FOLLOW UP WITH ORTHO- DR MCCORMICK FOR FURTHER EVALUATION AND TREATMENT OF WRIST FRACTURE- YOU WILL NEED A CAST 5. HYDROCODONE 5/325 #8 (DISPENSED IN ER DUE TO WEEKEND/PHARMACY CLOSED) TAKE EVERY 6 HOURS NEEDED FOR PAIN 6. FOLLOW UP WITH DR ARIAS FOR ADDITIONAL EVALUATION OF RIGHT SIDED NASOPHARYNGEAL MASS 7. RETURN TO ER FOR WORSENING SYMPTOMS Sepsis Event Note (ED) - Focused Exam Vital Signs: Vital Signs Temp Pulse Resp BP Pulse Ox 08/15/20 14:52 97.5 F 102 H 18 147/84 H 98 - Assessment/Plan Assessment:: 1. LEFT DISTAL NONDISPLACED RADIAL AND ULNAR FRACTURE 2. LEFT EYEBROW LACERATION 3. 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 DISCHARGE HOME 2. WOUND CARE INSTRUCTIONS GIVEN 3. SUTURE REMOVAL 5-7 DAYS 4. FOLLOW UP WITH ORTHO- DR MCCORMICK FOR FURTHER EVALUATION AND TREATMENT OF WRIST FRACTURE- YOU WILL NEED A CAST 5. HYDROCODONE 5/325 #8 (DISPENSED IN ER DUE TO WEEKEND/PHARMACY CLOSED) TAKE EVERY 6 HOURS NEEDED FOR PAIN 6. FOLLOW UP WITH DR ARIAS FOR ADDITIONAL EVALUATION OF RIGHT SIDED NASOPHARYNGEAL MASS 7. RETURN TO ER FOR WORSENING SYMPTOMS
[2020-08-15 15:00] VITALS: BP 147/84; PULSE 102
[2020-08-15] MEDS ORDERED: Lidocaine 1% 20 ML MDV ONE (15:14)
--- NOTE | 2020-08-15 15:30 | CR ---
[id number] RAD/RAD Wrist Left 3V Min EXAM: RAD Wrist Left 3V Min CLINICAL DATA: TRAUMA COMPARISON: NO PREVIOUS SIMILAR EXAM IS AVAILABLE. FINDINGS: Nondisplaced distal left radial and ulnar fractures are seen There are pre-existing degenerative changes. IMPRESSION: NONDISPLACED DISTAL LEFT RADIAL AND ULNAR FRACTURES Storm Oquendo MD 08/15/20 [id number] Thank you for allowing us to participate in the care of your patient.
--- NOTE | 2020-08-15 15:30 | CT ---
[id number] CT/CT Head WO IV EXAM: CT Head WO IV CLINICAL DATA: TRAUMA COMPARISON: No previous similar exam is available for comparison. FINDINGS: There is a soft tissue destructive nasopharyngeal mass A follow-up contrast enhanced CT is suggested ENT consultation also is suggested There is no mass or mass effect. There is no hemorrhage or hydrocephalus. There are no extra-axial fluid collections. There are no sites of abnormal attenuation. 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
[2020-08-15] MEDS ORDERED: Acetaminophen/HYDROcodone 325-5 MG Tab PO ONE (15:51)
== END 2020-08-15 16:35 | disposition home or self-care (01) ==
LOC: KA.ED 14:30
DX: S52.502A Unspecified fracture of the lower end of left radius, initial encounter for closed fracture (principal); S52.602A Unspecified fracture of lower end of left ulna, initial encounter for closed fracture; S01.112A Laceration without foreign body of left eyelid and periocular area, initial encounter; I10 Essential (primary) hypertension; K21.9 Gastro-esophageal reflux disease without esophagitis; E11.9 Type 2 diabetes mellitus without complications; E66.9 Obesity, unspecified; M06.9 Rheumatoid arthritis, unspecified; Z79.82 Long term (current) use of aspirin; Z79.899 Other long term (current) drug therapy; Z68.30 Body mass index [BMI] 30.0-30.9, adult; Z88.2 Allergy status to sulfonamides; Z79.4 Long term (current) use of insulin; W01.0XXA Fall on same level from slipping, tripping and stumbling without subsequent striking against object, initial encounter; Y92.009 Unspecified place in unspecified non-institutional (private) residence as the place of occurrence of the external cause
CPT/HCPCS: 12013; 29125; 70450; 73110-LT; 99284; 99284-25; A9270-GY

== ENCOUNTER 2022-06-19 15:48 | Observation (INO) | payer MEDICARE, MEDICAID ==
[2022-06-19] MEDS ORDERED: Acetaminophen 500 MG Tab PO ONE (19:15)
[2022-06-19] MEDS ORDERED: Acetaminophen 325 MG Tab PO PRN (19:25)
[2022-06-19] MEDS ORDERED: traMADol 50 MG Tab PO PRN (19:27)
[2022-06-19] MEDS ORDERED: Calcitriol 0.25 MCG Cap PO SCH (20:15)
[2022-06-19] MEDS: Metoprolol Tartrate 50 MG Tab PO SCH (20:37)
[2022-06-19] MEDS: metFORMIN 500 MG Tab PO SCH (20:37)
[2022-06-19] MEDS: amLODIPine 5 MG Tab PO SCH (20:38)
[2022-06-19] MEDS ORDERED: atorvaSTATin 10 MG Tab PO SCH (21:00)
[2022-06-20] MEDS: Pantoprazole 40 MG Tab.CR PO SCH ×2 (06:09→06:30)
[2022-06-20] MEDS ORDERED: Non-Formulary Medication 1 Each (Metformin Hcl [Metformin Hcl] 1,000 MG Tablet) PO SCH (08:00)
[2022-06-20] MEDS ORDERED: Aspirin 81 MG Tab.EC PO SCH (08:00)
[2022-06-20] MEDS: amLODIPine 5 MG Tab PO SCH (08:04)
[2022-06-20] MEDS: metFORMIN 500 MG Tab PO SCH (08:04)
[2022-06-20] MEDS: Metoprolol Tartrate 50 MG Tab PO SCH (08:05)
[2022-06-20 08:11] VITALS: BP 121/63; PULSE 90
[2022-06-20] MEDS ORDERED: Losartan 50 MG Tab PO SCH (09:00)
[2022-06-20] MEDS ORDERED: Insulin Glargine,Hum.Rec.Anlog 100 UNIT/ML 3 ML Pen SUBCUT SCH (09:00)
[2022-06-20] MEDS ORDERED: Hydrochlorothiazide 25 MG Tab PO SCH (09:00)
[2022-06-21] MEDS ORDERED: Calcitriol 0.25 MCG Cap PO SCH (09:00)
== END 2022-06-20 13:40 ==
LOC: KA.ED 15:48 → KA.MS 17:21
PROVIDERS: ADMIT Internal Medicine; ATTEND Internal Medicine
DX: S52.022A Displaced fracture of olecranon process without intraarticular extension of left ulna, initial encounter for closed fracture (principal); I12.9 Hypertensive chronic kidney disease with stage 1 through stage 4 chronic kidney disease, or unspecified chronic kidney disease; E11.22 Type 2 diabetes mellitus with diabetic chronic kidney disease; N18.9 Chronic kidney disease, unspecified; K21.9 Gastro-esophageal reflux disease without esophagitis; E78.00 Pure hypercholesterolemia, unspecified; E66.9 Obesity, unspecified; Z68.30 Body mass index [BMI] 30.0-30.9, adult; Z90.49 Acquired absence of other specified parts of digestive tract; Z88.2 Allergy status to sulfonamides; Z79.82 Long term (current) use of aspirin; Z90.09 Acquired absence of other part of head and neck; Z79.4 Long term (current) use of insulin; Z79.84 Long term (current) use of oral hypoglycemic drugs; Z79.899 Other long term (current) drug therapy; W00.9XXA Unspecified fall due to ice and snow, initial encounter
CPT/HCPCS: 29105; 73070-LT; 73560-LT; 82947; 99217; 99220; 99284; A9270-GY; G0378

== ENCOUNTER 2023-03-21 14:35 | Emergency (ER) | payer MEDICARE, MEDICAID ==
[2023-03-21 14:44] VITALS: BP 142/71; PULSE 105
== END 2023-03-21 15:38 | disposition home or self-care (01) ==
LOC: KA.ED 14:35
DX: S52.501A Unspecified fracture of the lower end of right radius, initial encounter for closed fracture (principal); S52.611A Displaced fracture of right ulna styloid process, initial encounter for closed fracture; E78.00 Pure hypercholesterolemia, unspecified; I10 Essential (primary) hypertension; K21.9 Gastro-esophageal reflux disease without esophagitis; E11.9 Type 2 diabetes mellitus without complications; E66.9 Obesity, unspecified; Z68.34 Body mass index [BMI] 34.0-34.9, adult; Z88.2 Allergy status to sulfonamides; Z79.82 Long term (current) use of aspirin; Z79.899 Other long term (current) drug therapy; Z79.4 Long term (current) use of insulin; W18.30XA Fall on same level, unspecified, initial encounter; Y92.480 Sidewalk as the place of occurrence of the external cause
CPT/HCPCS: 29125; 73110-RT; 99283; 99284